=== PATIENT | female | born 1930 | race Caucasian/White ===

== ENCOUNTER 2016-05-08 13:07 | Inpatient (IN) ==
[2016-05-08 16:52] LABS: Basophils # 0.1 K/mcL (0.0-0.2); Basophils % 0.5 %; Eosinophils # 0.2 K/mcL (0.0-0.6); Eosinophils % 1.9 %; Hematocrit 33.4 % (35.3-44.9); Hemoglobin 11.1 g/dL (11.5-15.4); Immature Granulocytes % 0.6 % (0-4); Lymphocytes # 2.3 K/mcL (0.6-4.6); Mean Corpuscular HGB Conc 33.2 g/dL (31.6-35.5); Mean Corpuscular Hemoglobin 29.2 pg (28.0-33.3); Mean Corpuscular Volume 87.9 fL (83.0-100.0); Mean Platelet Volume 9.4 fL (9.4-12.4); Monocytes # 1.1 K/mcL (0.0-1.3); Monocytes % 11.4 %; Neutrophils # 5.8 K/mcL (1.6-8.9); Platelet Count 224 K/mcL (140-400); Red Cell Distribution Width 14.1 % (11.5-14.5); Segmented Neutrophils % 61.6 %
[2016-05-08 17:00] LABS: Albumin 3.1 g/dL (3.5-5.0); Albumin/Globulin Ratio 0.8 (1.1-2.2); Bilirubin,Total 0.7 mg/dL (0.2-1.2); Calcium 9.4 mg/dL (8.6-10.8); Globulin 4.1 g/dL (2.4-3.5); Potassium 3.3 mEq/L (3.5-4.5); Total Protein 7.2 g/dL (6.0-8.3)
[2016-05-08 19:14] LABS: Adenovirus F 40/41 PCR Not detected (Not detect); Astrovirus PCR Not detected (Not detect); C.difficile Toxin A/B by PCR See reflex test (Not detect); Campylobacter by PCR Not detected (Not detect); Cryptosporidium by PCR Not detected (Not detect); Cyclospora cayetanensis PCR Not detected (Not detect); E. coli O157 by PCR Not detected (Not detect); Entamoeba histolytica PCR Not detected (Not detect); Enteroaggregative E.coli(EAEC) Not detected (Not detect); Enteropathogenic E.coli(EPEC) Not detected (Not detect); Enterotoxigenic E.coli (ETEC) Not detected (Not detect); Giardia lamblia PCR Not detected (Not detect); Norovirus GI/GII PCR Not detected (Not detect); Plesiomonas shigelloides PCR Not detected (Not detect); Rotavirus A PCR Not detected (Not detect); Salmonella PCR Not detected (Not detect); Sapovirus PCR Not detected (Not detect); Shig/EnteroinvasiveE coli EIEC Not detected (Not detect); Shigalike tox-prod E coli STEC Not detected (Not detect); Vibrio PCR Not detected (Not detect); Vibrio cholerae PCR Not detected (Not detect); Yersinia enterocolitica PCR Not detected (Not detect)
--- NOTE | 2016-05-08 19:26 | Emergency Department Note ---
Disposition Clinical Impression: Clostridium difficile infection, Dehydration Diarrhea Qualifiers: Diarrhea type: infectious Qualified Code(s): A09 - Infectious gastroenteritis and colitis, unspecified Disposition: Admitted As Inpatient Condition: Good Referrals: Deysi Best [Primary Care Provider] - Forms: ED Satisfaction Letter Nausea/Vomiting/Diarrhea HPI - General Chief complaint: ED Nausea/Vomiting/Diarrhea Stated complaint: "dehydrated and the diarrhea is worse" Time Seen by Provider: 05/08/16 16:10 Source: patient Limitations: no limitations Nursing Notes Reviewed: Yes Vital Signs Reviewed: Yes - History of Present Illness HPI Narrative: 85-year-old female who presents to the ER with an almost 2 week history of diarrhea. She has not had any nausea or vomiting today is her third ER visit for diarrhea. Her daughter is very concerned because the patient does have dementia been trying to keep her hydrated with Pedialyte but she continues to have the profuse loose stools. She denies any recent hospitalizations or antibiotic use. Pt Subjective Complaint: diarrhea Onset (ago): week(s) (2) Description of emesis: feculent Number of episodes: 8 (today) Associated Abdominal Pain: No Consistency: constant Improves with: nothing Worsens with: eating Associated symptoms: Reports: weakness. Denies: fever/chills, nausea/vomiting - Related Data Home Medications Medication Instructions Recorded Confirmed Aspirin 81 mg PO HS 01/21/15 01/20/16 Levothyroxine [Synthroid] 75 mcg PO QAM 01/21/15 01/20/16 Furosemide [Lasix] 20 mg PO DAILY 10/08/15 01/20/16 Omeprazole [PriLOSEC] 20 mg PO HS 10/08/15 01/20/16 Ondansetron ODT [Zofran ODT] 4 mg SL Q8HR PRN 10/08/15 01/20/16 Sertraline [Zoloft] 100 mg PO HS 10/08/15 01/20/16 Diltiazem HCl [Diltiazem ER] 240 mg PO DAILY 01/20/16 01/20/16 Ferrous Sulfate [Iron] 325 mg PO QAM 01/20/16 01/20/16 Ferrous Sulfate [Iron] 650 mg PO HS 01/20/16 01/20/16 Metformin [Glucophage] 500 mg PO BIDWM 01/20/16 01/20/16 Allergies Allergy/AdvReac Type Severity Reaction Status Date / Time Beta-Blockers AdvReac Drowsy Verified 01/20/16 21:41 (Beta-Adrenergic Bloc Penicillins AdvReac Hives Verified 01/20/16 21:41 All systems ED: reviewed and negative except as stated. Constitutional: Reports: weakness. Denies: fever, chills Gastrointestinal: Denies: nausea, vomiting Past Medical History - Past Medical History Source: patient, old records reviewed, nursing notes reviewed Medical history: Reports: dementia, diabetes, hypertension, thyroid disease Surgical history: Reports: , cholecystectomy, hysterectomy Psychiatric history: Reports: depression [employer] history: Reports: no [employer] history - Social History Smoking Status: Never smoker Smokeless Tobacco Status: No Alcohol use: Reports: none Drug use: Reports: none Physical Exam - General Limitations: no limitations General appearance: alert - Head Head exam: atraumatic, normocephalic, normal inspection - Eye Eye exam: Present: normal appearance, PERRL, EOMI - Expanded Eye Exam Pupils: Left: reactive - ENT ENT exam: normal exam, normal oropharynx, mucous membranes moist - Expanded ENT Exam External ear exam: Present: normal external inspection Mouth exam: Present: normal external inspection Teeth exam: Present: normal inspection Throat exam: Present: normal inspection - Neck Neck exam: Present: normal inspection, full ROM, trachea midline - Chest Chest inspection: Present: normal inspection, symmetric chest wall rise - Respiratory Respiratory exam: Present: normal lung sounds bilaterally - Cardiovascular Cardiovascular exam: Present: regular rate, normal rhythm, normal heart sounds - Abdominal Exam Abdominal exam: Present: soft, Non-Tender, hyperactive bowel sounds. Absent: guarding, rebound - Extremities Exam Extremities exam: Present: normal inspection, full ROM. Absent: tenderness, pedal edema - Expanded Upper Extremity Exam Shoulder exam: Present: normal inspection, full ROM Arm exam: Present: normal inspection, full ROM Elbow exam: Present: normal inspection, full ROM Forearm/Wrist exam: Present: normal inspection, full ROM Hand exam: Present: normal inspection, full ROM Vascular exam: Normal: capillary refill, radial pulse - Expanded Lower Extremity Exam Hip/Pelvis exam: Present: normal inspection, full ROM Upper leg exam: Present: normal inspection, full ROM Knee exam: Present: normal inspection, full ROM Lower leg exam: Present: normal inspection, full ROM Ankle exam: Present: normal inspection, full ROM Foot/toe exam: Present: normal inspection, full ROM Neurovascular/Tendon exam: Absent: motor deficit, sensory deficit, tendon deficit - Back Exam Back exam: Present: normal inspection, full ROM. Absent: tenderness - Neurological Exam Neurological exam: Present: alert. Absent: oriented X3 (person and place only) - Expanded Neurological Exam Patient oriented to: Present: person, place, time Coma Scale Eye Opening: Spontaneous Coma Scale Motor Response: Obeys Commands Coma Scale Verbal Response: Oriented Coma Scale Total: 15 - Psychiatric Psychiatric exam: Present: normal affect, normal mood - Skin Skin exam: Present: warm, dry, intact, normal color Course Vital Signs Temperature 97.9 F 05/08/16 13:47 Pulse Rate 91 05/08/16 13:47 Respiratory Rate 14 05/08/16 13:47 Blood Pressure 108/57 05/08/16 13:47 O2 Sat by Pulse Oximetry 97 05/08/16 13:47 Temperature 97.9 F 05/08/16 13:47 Pulse Rate 72 05/08/16 15:17 Respiratory Rate 18 05/08/16 15:17 Blood Pressure 143/69 05/08/16 15:17 O2 Sat by Pulse Oximetry 96 05/08/16 15:17 Oxygen Delivery Oxygen Delivery Room Air Nausea/Vomiting/Diarrhea - Differential Diagnosis Likely: traveler's diarrhea, gastroenteritis, clostridium difficile infection, drug-induced nausea and vomitting, dehydration - Medical Records Medical records reviewed: Yes I reviewed the patient's medical records. - Lab Data Lab results reviewed: Yes I reviewed the patient's lab results. Result diagrams: 05/08/16 16:38 05/08/16 16:38 Lab Results 05/08/16 05/08/16 05/08/16 Range/Units 16:38 16:38 16:38 WBC 9.4 (4.3-11.1) K/mcL RBC 3.80 L (3.82-4.97) M/mcL Hgb 11.1 L (11.5-15.4) g/dL Hct 33.4 L (35.3-44.9) % MCV 87.9 (83.0-100.0) fL MCH 29.2 (28.0-33.3) pg MCHC 33.2 (31.6-35.5) g/dL RDW 14.1 (11.5-14.5) % Plt Count 224 (140-400) K/mcL MPV 9.4 (9.4-12.4) fL Immature Gran % 0.6 (0-4) % Seg Neutrophils % 61.6 % Lymphocytes % 24.0 % Monocytes % 11.4 % Eosinophils % 1.9 % Basophils % 0.5 % Neutrophils # 5.8 (1.6-8.9) K/mcL Lymphocytes # 2.3 (0.6-4.6) K/mcL Monocytes # 1.1 (0.0-1.3) K/mcL Eosinophils # 0.2 (0.0-0.6) K/mcL Basophils # 0.1 (0.0-0.2) K/mcL Sodium 141 (136-145) mEq/L Potassium 3.3 L (3.5-4.5) mEq/L Chloride 105 (98-109) mEq/L Carbon Dioxide 23 (19-29) mEq/L BUN 22 H (7-20) mg/dL Creatinine 1.37 H (0.57-1.11) mg/dL Est GFR ( Amer) 44 L (> 60) Est GFR (Non-Af Amer) 37 L (> 60) BUN/Creatinine Ratio 16 (6-26) Glucose 208 H (70-99) mg/dL Calculated Osmolality 301 H (280-300) Lactic Acid 1.2 (0.5-2.2) mmol/L Calcium 9.4 (8.6-10.8) mg/dL Total Bilirubin 0.7 (0.2-1.2) mg/dL AST 13 (5-34) Units/L ALT 11 (0-55) Units/L Alkaline Phosphatase 91 (38-126) Units/L Serum Total Protein 7.2 (6.0-8.3) g/dL Albumin 3.1 L (3.5-5.0) g/dL Globulin 4.1 H (2.4-3.5) g/dL Albumin/Globulin Ratio 0.8 L (1.1-2.2) Lipase 20 (8-78) Units/L Stl C. cayetanensis PCR (Not detect) Stool Rotavirus A PCR (Not detect) Stl Adenov F 40/41 PCR (Not detect) Stool Astrovirus (PCR) (Not detect) Stool Campylobacter PCR (Not detect) Stl C. diff Tox A/B PCR (Not detect) Stool Cryptosporidium PCR (Not detect) Stl Sh Tox Pr E STEC PCR (Not detect) Stool E coli O157 PCR (Not detect) Stl Enterotoxigenic E PCR (Not detect) Stool EPEC (PCR) (Not detect) Stool EAEC (PCR) (Not detect) Stl E. histolytica PCR (Not detect) Stool Giardia Lamblia PCR (Not detect) Stool Salmonella PCR (Not detect) Stool Sapovirus (PCR) (Not detect) Stl P. shigelloides PCR (Not detect) Stl Shigella/EIEC PCR (Not detect) St Y.enterocolitica PCR (Not detect) Stool Vibrio (PCR) (Not detect) Stl Vibrio cholerae PCR (Not detect) Stl Norovirus GI/GII PCR (Not detect) Stl GI Panel (PCR) [facility] 05/08/16 Range/Units 17:45 WBC (4.3-11.1) K/mcL RBC (3.82-4.97) M/mcL Hgb (11.5-15.4) g/dL Hct (35.3-44.9) % MCV (83.0-100.0) fL MCH (28.0-33.3) pg MCHC (31.6-35.5) g/dL RDW (11.5-14.5) % Plt Count (140-400) K/mcL MPV (9.4-12.4) fL Immature Gran % (0-4) % Seg Neutrophils % % Lymphocytes % % Monocytes % % Eosinophils % % Basophils % % Neutrophils # (1.6-8.9) K/mcL Lymphocytes # (0.6-4.6) K/mcL Monocytes # (0.0-1.3) K/mcL Eosinophils # (0.0-0.6) K/mcL Basophils # (0.0-0.2) K/mcL Sodium (136-145) mEq/L Potassium (3.5-4.5) mEq/L Chloride (98-109) mEq/L Carbon Dioxide (19-29) mEq/L BUN (7-20) mg/dL Creatinine (0.57-1.11) mg/dL Est GFR ( Amer) (> 60) Est GFR (Non-Af Amer) (> 60) BUN/Creatinine Ratio (6-26) Glucose (70-99) mg/dL Calculated Osmolality (280-300) Lactic Acid (0.5-2.2) mmol/L Calcium (8.6-10.8) mg/dL Total Bilirubin (0.2-1.2) mg/dL AST (5-34) Units/L ALT (0-55) Units/L Alkaline Phosphatase (38-126) Units/L Serum Total Protein (6.0-8.3) g/dL Albumin (3.5-5.0) g/dL Globulin (2.4-3.5) g/dL Albumin/Globulin Ratio (1.1-2.2) Lipase (8-78) Units/L Stl C. cayetanensis PCR Not detected (Not detect) Stool Rotavirus A PCR Not detected (Not detect) Stl Adenov F 40/41 PCR Not detected (Not detect) Stool Astrovirus (PCR) Not detected (Not detect) Stool Campylobacter PCR Not detected (Not detect) Stl C. diff Tox A/B PCR See reflex test A (Not detect) Stool Cryptosporidium PCR Not detected (Not detect) Stl Sh Tox Pr E STEC PCR Not detected (Not detect) Stool E coli O157 PCR Not detected (Not detect) Stl Enterotoxigenic E PCR Not detected (Not detect) Stool EPEC (PCR) Not detected (Not detect) Stool EAEC (PCR) Not detected (Not detect) Stl E. histolytica PCR Not detected (Not detect) Stool Giardia Lamblia PCR Not detected (Not detect) Stool Salmonella PCR Not detected (Not detect) Stool Sapovirus (PCR) Not detected (Not detect) Stl P. shigelloides PCR Not detected (Not detect) Stl Shigella/EIEC PCR Not detected (Not detect) St Y.enterocolitica PCR Not detected (Not detect) Stool Vibrio (PCR) Not detected (Not detect) Stl Vibrio cholerae PCR Not detected (Not detect) Stl Norovirus GI/GII PCR Not detected (Not detect) Stl GI Panel (PCR) Com See below - Radiology Data Radiology results reviewed: Yes I reviewed the patient's radiology results.
[2016-05-08] MEDS ORDERED: MetroNIDAZOLE 500 MG/100 ML 500 MG/100 ML BAG IVPB ONE (19:30)
[2016-05-08] MEDS ORDERED: 0.9 % Sodium Chloride 1,000 ML IVC ONE (19:33)
[2016-05-08] MEDS ORDERED: Ipratropium/Albuterol Neb 3 ML IH PRN (20:24)
[2016-05-08] MEDS ORDERED: Benzonatate 100 MG CAPSULE PO PRN (20:24)
[2016-05-08] MEDS ORDERED: Scopolamine Patch 1.5 MG PATCH.TD72 TD ONE (20:24)
[2016-05-08] MEDS ORDERED: Metoclopramide 10 MG/2 ML VIAL IVP PRN (20:24)
[2016-05-08] MEDS ORDERED: Dextrose Gel 15 GM PO PRN ×2 (20:28)
[2016-05-08] MEDS ORDERED: *HR* Dextrose 50 % in Water (Syg) 50 ML SYRINGE IVP PRN (20:28)
[2016-05-08] MEDS ORDERED: Acetaminophen 325 MG TABLET PO PRN (20:28)
[2016-05-08] MEDS ORDERED: *HR* Promethazine 25 MG/ML VIAL IVP PRN (20:28)
[2016-05-08] MEDS ORDERED: *HR* Morphine 2 MG/ML SYRINGE IVP PRN (20:28)
[2016-05-08] MEDS ORDERED: D5% in Water 1,000 ML IV PRN (20:28)
[2016-05-08] MEDS ORDERED: *HR* OxyCODONE Immed Rel 5 MG TABLET PO PRN (20:28)
[2016-05-08] MEDS ORDERED: Naloxone 0.4 MG/ML INJ IVP PRN (20:28)
--- NOTE | 2016-05-08 20:43 | Internal Med History&Physical ---
Date of Encounter: 05/08/16 Time of Encounter: 20:30 Assessment and Plan (1) Abdominal pain, vomiting, and diarrhea Current visit: Yes Status: Acute . (2) Infectious diarrheal disease Current visit: Yes Status: Acute . (3) Acute kidney injury superimposed on CKD Current visit: Yes Status: Acute . (4) Dementia arising in the senium and presenium Current visit: Yes Status: Chronic . (5) Type 2 diabetes mellitus Current visit: Yes Status: Chronic . Qualifiers: Diabetes mellitus complication status: with unspecified complications Diabetes mellitus medical terminologist insulin use: without medical terminologist use Qualified Code( s): E11.8 - Type 2 diabetes mellitus with unspecified complications (6) Hypokalemia due to loss of potassium Current visit: Yes Status: Acute . (7) Hypoalbuminemia due to protein-calorie malnutrition Current visit: Yes Status: Chronic . (8) Clostridium difficile infection Current visit: Yes Status: Acute . (9) Dehydration Current visit: Yes Status: Acute . (10) Hypothyroidism Current visit: Yes Status: Chronic . Qualifiers: Hypothyroidism type: unspecified Qualified Code(s): E03.9 - Hypothyroidism , unspecified (11) Proctitis Current visit: Yes Status: Acute . Internal Medicine - H&P: HPI Chief complaint: Diarrhea. Abdominal pain. Admitted From: Emergency Dept Plans for Post Hospital Care: Home History of present illness: Ms. Pagan is a 85 year old female with history significant for dementia unspecified, hypertension, depression and anxiety, type 2 diabetes mellitus, hypothyroidism, iron deficiency anemia, GERD, hypothyroidism, nonischemic cardiomyopathy, COPD-emphysema, nonsmoker. The patient was visited and interviewed and examined. The patient is admitted to the [facility] via the emergency department when she presents in the company of family with reports of persisting profuse diarrhea. The patient had been seen in the ER on 2 other occasions within the last week with report of a two-week history of diarrheal illness associated with abdominal pain nausea vomiting and watery diarrhea. Suspect medication has been feculent. Number of episodes of diarrhea per day between 5-10. Generalized weakness has been nonprogressive. Oral intake has diminished. Efforts to maintain hydration with prompting from family have been frustrating due to patient's dementia. There is no report of any specific ill contacts or recent travel or hospitalizations. The patient has not been recently prescribed any oral or parenteral antibiotic therapies. She has not been found to be fevers or chilling preventative diaphoresis. Watery foul-smelling diarrhea reported by family. The patient has been seen to be increasingly lethargic with diminishing ability to complete independent activities of daily living. He should not be prior to emergency room visits at [facility] the patient is also been seen earlier at [facility] on May 02 treated and released. She was found at that time to have evidence for acute kidney injury along with her dehydration. She had been seen by her primary care physician as well and her prescribed metformin therapy was discontinued due to her renal insufficiency and patient changed to Jordiance pending improvement in the renal function. She had not been initiated on any antibiotic therapies empirically for diarrheal illness. There is no report of prior diagnosis to facilitate infection or infectious enterocolitis. Findings in the ED: Temperature 97.9 pulse 70-91 respirations 14-18 BP 108-143/50-69 and O2 saturation 97% room air. WBC 9.4 hemoglobin 11.1 platelets 224,000. Differential normal. Metabolic panel normal except potassium 3.3 BUN 22 creatinine 1.37 GFR 37 glucose 208 osmolality 301 albumin 3.1 total protein 7.2. Lactic acid 1.2. Lipase 20. Gastrointestinal panel positive for C. difficile toxin a and B by PCR. CT of abdomen/pelvis without contrast demonstrated inflammatory changes involving the mid and distal rectum concerning for proctitis. Lower chest demonstrated mitral annular calcifications and to the family which demonstrated no mass lesion. Mild intra-hepatic and extrahepatic biliary dilatation. Status post cholecystectomy. Spleen and adrenal stomach pancreas without acute process. Slight atrophy of the kidneys. Right inferior pole calculus. Ureter is not dilated. Bladder unremarkable. Large and small bowel demonstrated no evidence of obstruction. Appendix not visualized. Status post hysterectomy. No adnexal mass. No free fluid or free air. No significant adenopathy. Normal vasculature. Mild atherosclerosis. No bony or soft tissue abnormalities demonstrated. Preliminary impression suggest acute infectious enterocolitis serologies consistent for C. difficile infection. This is associated with significant volume loss and acute kidney injury stage III. Moderate electrolye derangements coincide with this. At current presentation the patient does not meet SIRS or sepsis criteria. This may however been more evident earlier in her course. Given patient's advanced age, clinical findings, presenting chief concerns and comorbidities she is at risk for further acute clinical decline and morbidity in this setting. Workup and treatments will proceed comprehensively. Cumulative laboratory and radiographic data base was reviewed, considered and discussed. Pertinent ancillary medical records including ECW and PCI documentation, when available was reviewed and considered. Given the patient's presenting concerns, past medical history, clinical findings and symptoms, she is admitted at this time will undergo further evaluation and disposition. Orders were written as per the computerized physician order entry clerk system.......................................................................... .................... Consultative opinion and will be sought as clinical circumstances justify. Pain management needs will be addressed. Laboratory and radiographic data base will be updated as appropriate. Studies include: Cultures of blood and urine and stool, GI stool panel, stool /C. dificle toxin A/B, CPK, cardiac injury panel, BNP, metabolic and hematologic panel, magnesium, phosphorus, ionized calcium, thyroid panel, lipid profile, A1c , C-peptide, CRP, sedimentation rate, amylase, lipase, , blood gas, UA, lactic acid, serologies, etc. Precautions: Aspiration, fall, contact, delirium protocol/surveillance initiated. Telemetry with continuous hemodynamic monitoring and pulse oximetry initiated. Orthostatic vital signs Empiric antibody coverage: Intravenous Flagyl and PO Vancomycin susp pending final culture data. Bowel rest imposed. Clear liquid diet. Antiemetic, prokinetic, antispasmotic and probiotic therapies will be initiated. Antidiarrheal nocturnal dosing x3 days to offset severity of dysentery and dehydration pending efficacy of antibiotic therapies. Rehydration therapy to be emphasized. Special studies: CT abdomen/pelvis, chest x-ray, telemetry, EKG. Pulmonary toilet: Incentive spirometry. When necessary aerosol bronchodilator, mucolytic, antitussive, supplemental oxygen. Corticosteroid therapy when necessary. CPAP/BiPAP supplemental oxygen delivery when necessary. Aerosol Mucomyst therapy when necessary. Fluid and electrolyte repletion efforts will proceed. Careful attention to fluid balance and renal recovery will be emphasized. Avoidance of nephrotoxic exposure and adverse drug drug interaction in the setting of impaired renal function will be monitored closely. Correction of metabolic and acid-base deficits will be emphasized. Acute coronary syndrome protocol/surveillance initiated. DVT and PUD prophylaxis initiated: PPI therapy, intermittent pneumatic cuffs/ Teds. Subcutaneous heparin/Lovenox. Early ambulation will be encouraged. Immunization updates recommended. Influenza and pneumococcal vaccinations as part of ongoing preventative healthcare recommendations strongly recommended. Smoking cessation counseling briefly addressed. Patient is a nonsmoker. Advanced care directive discussion briefly addressed. Patient does not declare any healthcare restrictions at this time. Cardiovascular risk appraisal and cardiovascular risk reduction efforts will be emphasized. Physical and occupational therapy may be consulted to evaluate/assess patient's functional capacity and progress mobility if circumstances warrant. Sliding scale insulin coverage, (clear liquids to advance when clinical status permits) ADA dietary restraint and schedule an as-needed basis fingerstick glucose assessments were initiated. Oral hypoglycemic therapies will be withheld pending discharge planning Nutrition/diabetes education counseling may be considered if circumstances justify. Outpatient medication schedules will be reviewed, confirmed and facilitated as appropriate. Reconciliation of home treatments including adjustments, substitutions and reintroduction into the treatment regimen will address necessary maintenance therapies for chronic pre-existing medical conditions. Plan of care has been reviewed and discussed in detail with the patient's family. Questions addressed. Hospital course will be dependent upon clinical findings, treatment response and potential consultative interventions. Patient is at risk for further acute clinical decline and morbidity due to her advanced age, presenting chief complaints, clinical findings and comorbidities. Condition is serious. Prognosis is cautiously optimistic. CODE STATUS is full. Past Med Surg Social Fam HX - Past Medical History Source: old records reviewed Medical history: arthritis, cardiomyopathy (History of nonischemic cardiomyopathy.), COPD, dementia, diabetes, GERD, hypertension, osteoporosis, renal disease, thyroid disease, other (Iron deficiency anemia.) Psychiatric history: anxiety, depression, other - Past Surgical History Surgical History: appendectomy, (x3), cholecystectomy, hysterectomy, PAN/BSO, other - Social History Smoking Status: Never smoker Smokeless Tobacco Status: No Alcohol use: none Drug use: none Occupational status: retired Current living situation: With Family Activity Level: Independent ambulation, Mostly sedentary Recent Out of Country Travel Within the Last 8 Weeks: No Exposure or Possible Exposure to Illness During Travel: No - Family History Brother Living Status: Hx Family Cancer: Yes (esophagus) Mother Hx Family Respiratory Disorders: Yes (PE) Internal Medicine - H&P: Meds Aspirin 81 mg PO QPM 01/21/15 [History] Levothyroxine [Synthroid] 75 mcg PO QAM 01/21/15 [History] Furosemide [Lasix] 20 mg PO QAM 10/08/15 [History] Omeprazole [PriLOSEC] 20 mg PO QPM 10/08/15 [History] Ondansetron ODT [Zofran ODT] 4 mg SL Q8HR PRN 10/08/15 [History] Sertraline [Zoloft] 100 mg PO QPM 10/08/15 [History] Diltiazem HCl [Diltiazem ER] 240 mg PO QAM 01/20/16 [History] Ferrous Sulfate [Iron] 325 mg PO QAM 01/20/16 [History] Ferrous Sulfate [Iron] 650 mg PO QPM 01/20/16 [History] Empagliflozin [Jardiance] 10 mg PO QAM 05/08/16 [History] Allergies Penicillins Allergy (Verified 05/08/16 20:29) Hives Beta-Blockers (Beta-Adrenergic Bloc Adverse Reaction (Verified 01/20/16 21:41) Drowsy ROS unobtainable: due to mental status All Systems PM: A 10-system review of systems was performed and is negative for pertinent findings except as documented above in the HPI. - Constitutional Constitutional: as per HPI, anorexia, malaise, weakness, no chills, no fever(s) , no night sweats - EENT Eyes: as per HPI, no change in vision, no discharge, no pain, no photophobia Ears: as per HPI, no ear discharge, no ear pain, no tinnitus Nose, mouth and throat: as per HPI, no dysphagia, no nasal discharge, no neck pain, no sore throat - Cardiovascular Cardiovascular ROS IM: as per HPI, no chest pain, no diaphoresis, no dyspnea, no lightheadedness, no palpitations, no syncope - Respiratory Respiratory: as per HPI, no cough, no dyspnea, no wheezing, no excessive phlegm production - Gastrointestinal Gastrointestinal: as per HPI, abdominal pain, bloating, change in bowel habits, change in stool character, cramping, diarrhea, early satiety, fecal incontinence , loose stools, nausea, vomiting, other, no coffee ground emesis, no constipation, no heartburn, no hematemesis, no hematochezia, no melena, no odynophagia - Genitourinary Genitourinary: as per HPI, other, no change in urinary stream, no dysuria, no flank pain, no hematuria Menstruation: as per HPI, post hysterectomy - Musculoskeletal Musculoskeletal ROS IM: as per HPI, no numbness, no tingling - Integumentary Integumentary IM: as per HPI, no rash, no unusual bruising - Neurological Neurological ROS: as per HPI, no confusion, no convulsions, no focal weakness, no numbness, no tingling, no tremor(s) - Psychiatric Psychiatric: as per HPI, other - Endocrine Endocrine IM: as per HPI - Hematologic/Lymphatic Hematologic/Lymphatic: as per HPI, no easy bruising - Allergic/Immunologic Allergic/Immunologic: as per HPI - Constitutional Vitals: Temp Pulse Resp BP Pulse Ox 97.9 F 74 18 147/59 97 05/08/16 13:47 05/08/16 19:30 05/08/16 19:30 05/08/16 19:30 05/08/16 19:30 General appearance: Present: cooperative, A&O X 2, mild distress - Head Head exam: Present: atraumatic, normocephalic - Eye Eye exam: Present: EOMI, PERRL, conjuntiva pink, sclera anicteric Pupils: Present: normal accommodation, PERRL - ENT ENT exam: Present: mucous membranes dry, normal external ear exam, normal oropharynx - Neck Neck exam general surgery: Present: supple, trachea midline. Absent: lymphadenopathy - Respiratory Respiratory exam: Present: decreased breath sounds, CTAB. Absent: accessory muscle use, rales, rhonchi, wheezes - Cardiovascular Cardiovascular exam: Present: RRR, +S1, +S2. Absent: diastolic murmur, gallop, rubs, systolic murmur - GI/Abdominal GI/Abdominal exam: Present: distended, hyperactive bowel sounds, soft, no peritoneal signs. Absent: guarding, rebound, tenderness - Extremities Exam Extremities exam: Present: full ROM, warm, radial pulses palpable and symetrical. Absent: calf tenderness, cyanotic, pedal edema - Neurological Exam Neurological exam: Present: alert, altered, CN II-XII intact, no focal deficits. Absent: oriented X3, pronater drift, facial droop, speech deficit - Expanded Neurological Exam Neurological exam expanded: Present: protecting the airway. Absent: ataxia, expressive aphasia, receptive aphasia Patient oriented to: Present: person, place. Absent: time Coma Scale Eye Opening: Spontaneous Coma Scale Motor Response: Obeys Commands Coma Scale Verbal Response: Oriented Coma Scale Total: 15 - Psychiatric Psychiatric exam: Present: normal affect, normal mood - Skin Skin exam: Present: dry, intact, warm. Absent: petechiae, rash, urticaria, vesicles Internal Med - H&P Results - Labs CBC & Chem 7: 05/09/16 03:52 05/09/16 03:52 - Impressions Vital Signs Temp Pulse Resp BP Pulse Ox 05/08/16 19:30 74 18 147/59 97 05/08/16 18:00 73 18 147/49 97 05/08/16 17:00 70 16 146/57 97 05/08/16 16:00 72 16 146/49 96 05/08/16 15:17 72 18 143/69 96 05/08/16 13:47 97.9 F 91 14 108/57 97 Intake and Output 05/08/16 05/08/16 05/08/16 07:59 15:59 23:59 Other: Weight 55.792 kg Patient Weight 05/08/16 23:59 Weight 55.792 kg Short CBC 05/08/16 Range/Units 16:38 WBC 9.4 (4.3-11.1) K/mcL Hgb 11.1 L (11.5-15.4) g/dL Hct 33.4 L (35.3-44.9) % Plt Count 224 (140-400) K/mcL Neutrophils # 5.8 (1.6-8.9) K/mcL BMP 05/08/16 Range/Units 16:38 Sodium 141 (136-145) mEq/L Potassium 3.3 L (3.5-4.5) mEq/L Chloride 105 (98-109) mEq/L Carbon Dioxide 23 (19-29) mEq/L BUN 22 H (7-20) mg/dL Creatinine 1.37 H (0.57-1.11) mg/dL Glucose 208 H (70-99) mg/dL Calcium 9.4 (8.6-10.8) mg/dL Liver Function 05/08/16 Range/Units 16:38 Total Bilirubin 0.7 (0.2-1.2) mg/dL AST 13 (5-34) Units/L ALT 11 (0-55) Units/L Alkaline Phosphatase 91 (38-126) Units/L Albumin 3.1 L (3.5-5.0) g/dL Abnormal lab results RBC 3.80 M/mcL (3.82-4.97) L 05/08/16 16:38 Hgb 11.1 g/dL (11.5-15.4) L 05/08/16 16:38 Hct 33.4 % (35.3-44.9) L 05/08/16 16:38 Potassium 3.3 mEq/L (3.5-4.5) L 05/08/16 16:38 BUN 22 mg/dL (7-20) H 05/08/16 16:38 Creatinine 1.37 mg/dL (0.57-1.11) H 05/08/16 16:38 Est GFR ( Amer) 44 (> 60) L 05/08/16 16:38 Est GFR (Non-Af Amer) 37 (> 60) L 05/08/16 16:38 Glucose 208 mg/dL (70-99) H 05/08/16 16:38 Calculated Osmolality 301 (280-300) H 05/08/16 16:38 Albumin 3.1 g/dL (3.5-5.0) L 05/08/16 16:38 Globulin 4.1 g/dL (2.4-3.5) H 05/08/16 16:38 Albumin/Globulin Ratio 0.8 (1.1-2.2) L 05/08/16 16:38 Stl C. diff Tox A/B PCR See reflex test (Not detect) A 05/08/16 17:45 Allergies Allergy/AdvReac Type Severity Reaction Status Date / Time Penicillins Allergy Hives Verified 05/08/16 20:29 Beta-Blockers AdvReac Drowsy Verified 01/20/16 21:41 (Beta-Adrenergic Bloc Laboratory Results WBC 9.4 K/mcL (4.3-11.1) 05/08/16 16:38 RBC 3.80 M/mcL (3.82-4.97) L 05/08/16 16:38 Hgb 11.1 g/dL (11.5-15.4) L 05/08/16 16:38 Hct 33.4 % (35.3-44.9) L 05/08/16 16:38 MCV 87.9 fL (83.0-100.0) 05/08/16 16:38 MCH 29.2 pg (28.0-33.3) 05/08/16 16:38 MCHC 33.2 g/dL (31.6-35.5) 05/08/16 16:38 RDW 14.1 % (11.5-14.5) 05/08/16 16:38 Plt Count 224 K/mcL (140-400) 05/08/16 16:38 MPV 9.4 fL (9.4-12.4) 05/08/16 16:38 Immature Gran % 0.6 % (0-4) 05/08/16 16:38 Seg Neutrophils % 61.6 % 05/08/16 16:38 Lymphocytes % 24.0 % 05/08/16 16:38 Monocytes % 11.4 % 05/08/16 16:38 Eosinophils % 1.9 % 05/08/16 16:38 Basophils % 0.5 % 05/08/16 16:38 Neutrophils # 5.8 K/mcL (1.6-8.9) 05/08/16 16:38 Lymphocytes # 2.3 K/mcL (0.6-4.6) 05/08/16 16:38 Monocytes # 1.1 K/mcL (0.0-1.3) 05/08/16 16:38 Eosinophils # 0.2 K/mcL (0.0-0.6) 05/08/16 16:38 Basophils # 0.1 K/mcL (0.0-0.2) 05/08/16 16:38 Sodium 141 mEq/L (136-145) 05/08/16 16:38 Potassium 3.3 mEq/L (3.5-4.5) L 05/08/16 16:38 Chloride 105 mEq/L (98-109) 05/08/16 16:38 Carbon Dioxide 23 mEq/L (19-29) 05/08/16 16:38 BUN 22 mg/dL (7-20) H 05/08/16 16:38 Creatinine 1.37 mg/dL (0.57-1.11) H 05/08/16 16:38 Est GFR ( Amer) 44 (> 60) L 05/08/16 16:38 Est GFR (Non-Af Amer) 37 (> 60) L 05/08/16 16:38 BUN/Creatinine Ratio 16 (6-26) 05/08/16 16:38 Glucose 208 mg/dL (70-99) H 05/08/16 16:38 Calculated Osmolality 301 (280-300) H 05/08/16 16:38 Lactic Acid 1.2 mmol/L (0.5-2.2) 05/08/16 16:38 Calcium 9.4 mg/dL (8.6-10.8) 05/08/16 16:38 Magnesium 1.8 mg/dL (1.6-2.6) 05/08/16 16:38 Total Bilirubin 0.7 mg/dL (0.2-1.2) 05/08/16 16:38 AST 13 Units/L (5-34) 05/08/16 16:38 ALT 11 Units/L (0-55) 05/08/16 16:38 Alkaline Phosphatase 91 Units/L (38-126) 05/08/16 16:38 Serum Total Protein 7.2 g/dL (6.0-8.3) 05/08/16 16:38 Albumin 3.1 g/dL (3.5-5.0) L 05/08/16 16:38 Globulin 4.1 g/dL (2.4-3.5) H 05/08/16 16:38 Albumin/Globulin Ratio 0.8 (1.1-2.2) L 05/08/16 16:38 Lipase 20 Units/L (8-78) 05/08/16 16:38 Stl C. cayetanensis PCR Not detected (Not detect) 05/08/16 17:45 Stool Rotavirus A PCR Not detected (Not detect) 05/08/16 17:45 Stl Adenov F 40/41 PCR Not detected (Not detect) 05/08/16 17:45 Stool Astrovirus (PCR) Not detected (Not detect) 05/08/16 17:45 Stool Campylobacter PCR Not detected (Not detect) 05/08/16 17:45 Stl C. diff Tox A/B PCR See reflex test (Not detect) A 05/08/16 17:45 Stool Cryptosporidium PCR Not detected (Not detect) 05/08/16 17:45 Stl Sh Tox Pr E STEC PCR Not detected (Not detect) 05/08/16 17:45 Stool E coli O157 PCR Not detected (Not detect) 05/08/16 17:45 Stl Enterotoxigenic E PCR Not detected (Not detect) 05/08/16 17:45 Stool EPEC (PCR) Not detected (Not detect) 05/08/16 17:45 Stool EAEC (PCR) Not detected (Not detect) 05/08/16 17:45 Stl E. histolytica PCR Not detected (Not detect) 05/08/16 17:45 Stool Giardia Lamblia PCR Not detected (Not detect) 05/08/16 17:45 Stool Salmonella PCR Not detected (Not detect) 05/08/16 17:45 Stool Sapovirus (PCR) Not detected (Not detect) 05/08/16 17:45 Stl P. shigelloides PCR Not detected (Not detect) 05/08/16 17:45 Stl Shigella/EIEC PCR Not detected (Not detect) 05/08/16 17:45 St Y.enterocolitica PCR Not detected (Not detect) 05/08/16 17:45 Stool Vibrio (PCR) Not detected (Not detect) 05/08/16 17:45 Stl Vibrio cholerae PCR Not detected (Not detect) 05/08/16 17:45 Stl Norovirus GI/GII PCR Not detected (Not detect) 05/08/16 17:45 Stl GI Panel (PCR) Com See below 05/08/16 17:45 C. difficile Tox (PCR) Positive (Negative) 05/08/16 17:45 Impressions Abdomen/Pelvis CT 05/08/16 18:00 IMPRESSION: Inflammatory changes are present involving the mid and distal rectum, concerning for proctitis. Correlation with endoscopy is suggested once clinically appropriate to exclude an underlying mass lesion. D/ / 05/08/2016 18:57:54 Maximino Norton MD / basil Interpreting Provider: Maximino Norton MD
[2016-05-08 21:25] LABS: VBG HCO3 29.7 mEq/L (21-27); VBG PH 7.4 pH Units (7.32-7.42)
[2016-05-08 21:31] LABS: INR 1.2; Prothrombin Time 13.1 Seconds (9.4-12.1)
[2016-05-08 21:33] LABS: Activated Partial Thrombo Time 21.5 Seconds (26.0-36.0)
[2016-05-08 21:35] LABS: Hemoglobin A1C 6.8 %
[2016-05-08] MEDS ORDERED: Potassium Chloride Elixir 20 MEQ/15 ML UDC PO ONE (21:38)
[2016-05-08] MEDS ORDERED: Potassium Chloride 20 MEQ, Lidocaine 1% 2 ML in D5% in Water 250 ML IVPB ONE (21:38)
[2016-05-08 21:42] LABS: Magnesium 1.8 mg/dL (1.6-2.6); Phosphorous 2.8 mg/dL (2.3-4.7)
[2016-05-08 22:45] LABS: Thyroid Stimulating Hormone 1.646 mcIU/mL (0.350-4.840)
[2016-05-08] MEDS: Vancomycin Oral Soln 250 MG/2.5 ML UDC PO SCH (22:55)
[2016-05-08] MEDS: Aspirin 81 MG TAB.CHEW PO SCH (22:56)
[2016-05-08] MEDS: Diphenoxylate/Atropine 1 TAB TABLET PO SCH (22:56)
[2016-05-08] MEDS: 0.9 % Sodium Chloride 1,000 ML IVC SCH (23:10)
[2016-05-08] MEDS: Insulin LISPRO 300 UNITS/3 ML VIAL SQ SCH (23:14)
[2016-05-09] MEDS: MetroNIDAZOLE 500 MG/100 ML 500 MG/100 ML BAG IVPB SCH ×5 (01:05→23:45)
[2016-05-09 04:54] LABS: Hematocrit 29.7 % (35.3-44.9); Hemoglobin 9.6 g/dL (11.5-15.4); Mean Corpuscular HGB Conc 32.3 g/dL (31.6-35.5); Mean Corpuscular Hemoglobin 28.5 pg (28.0-33.3); Mean Corpuscular Volume 88.1 fL (83.0-100.0); Mean Platelet Volume 9.6 fL (9.4-12.4); Platelet Count 208 K/mcL (140-400); Red Blood Count 3.37 M/mcL (3.82-4.97); Red Cell Distribution Width 13.9 % (11.5-14.5)
[2016-05-09 05:09] LABS: Calcium 8.2 mg/dL (8.6-10.8); Chol/HDL Ratio 2.8 (0-4.9); Potassium 3.7 mEq/L (3.5-4.5)
[2016-05-09] MEDS: *HR* Heparin 5,000 UNIT/ML VIAL SQ SCH ×2 (05:54→18:12)
[2016-05-09] MEDS: Insulin LISPRO 300 UNITS/3 ML VIAL SQ SCH ×4 (08:34→21:30)
[2016-05-09] MEDS ORDERED: Pantoprazole 40 MG VIAL IVP SCH (09:00)
[2016-05-09] MEDS: Diltiazem CD (24hr) 240 MG CAPSULE PO SCH (10:14)
[2016-05-09] MEDS: Lactobacillus 1 EACH CAP.SPRINK PO SCH (10:14)
[2016-05-09] MEDS: Vancomycin Oral Soln 250 MG/2.5 ML UDC PO SCH ×4 (10:14→21:15)
--- NOTE | 2016-05-09 11:34 | Electrocardiograph Report ---
[facility] Test Date: 2016-05-08 Pat Name: GAVIN KHAN Department: 103 Room: 3A11 Gender: F [employer]er: MARTIN : 1930 Requested By: Maulik Culp Order Number: [id number] Reading MD: Tasha Diggs Measurements Intervals [place] Rate: 69 P: 43 OK: 188 QRS: -50 QRSD: 147 T: 111 QT: 416 QTc: 436 Interpretive Statements SINUS RHYTHM POSSIBLE LEFT ATRIAL ENLARGEMENT LEFT BUNDLE BRANCH BLOCK Electronically Signed On 05-09-16 11:32:45 EST by Tasha Diggs
[2016-05-09] MEDS: 0.9 % Sodium Chloride 1,000 ML IVC SCH (14:15)
--- NOTE | 2016-05-09 14:55 | Internal Med Progress Note ---
Date of Encounter: 05/09/16 Time of Encounter: 14:53 - Assessment and plan (1) Clostridium difficile infection Current Visit: Yes Status: Acute Assessment and plan: The patient has been admitted due to acute diarrhea associated with hypokalemia and acute kidney injury. The etiology of the diarrhea is C. difficile colitis. The patient is already on IV flagyl and po vancomycin. No leukocytosis. We will avoid nephrotoxic agents. We will continue monitoring potassium. We will obtain magnesium levels. Will advance diet to full liquid diet, will advance to soft diet tonight. We will obtain a consultation with the patient has therapy, physical therapy and social staff worker. Patient has underlying dementia, her power of trademark attorney is one of her daughters. I discussed the case in detail with the patient and her daughter during this encounter. They expressed understanding. (2) Acute kidney injury superimposed on CKD Current Visit: Yes Status: Acute (3) Hypokalemia Current Visit: Yes Status: Acute Assessment and plan: Resolved, will continue monitoring. (4) Dementia Current Visit: Yes Status: Acute Qualifiers: Dementia type: unspecified type Dementia behavioral disturbance: without behavioral disturbance Qualified Code(s): F03.90 - Unspecified dementia without behavioral disturbance - Time Spent With Patient 25 - 35 minutes - Subjective Interval history: This is my first encounter with the patient. The patient was seen and examined during rounds. The patient's daughter was present during this encounter. Patient still has watery diarrhea. She denies fever. She has underlying dementia. - Constitutional Vitals: Temp Pulse Resp BP Pulse Ox 98.2 F 81 14 131/55 95 05/09/16 13:23 05/09/16 13:23 05/09/16 13:23 05/09/16 13:23 05/09/16 13:23 General appearance: Present: cooperative, A&O X 2, pleasant, no acute distress - Head Head exam: Present: atraumatic, normocephalic - Eye Eye exam: Present: PERRL, conjuntiva pink, sclera anicteric Pupils: Present: PERRL - Neck Neck exam general surgery: Present: supple, trachea midline. Absent: lymphadenopathy - Respiratory Respiratory exam: Present: decreased breath sounds. Absent: accessory muscle use, rales, rhonchi, wheezes - Cardiovascular Cardiovascular exam: Present: RRR, +S1, +S2. Absent: diastolic murmur, gallop, rubs, systolic murmur - GI/Abdominal GI/Abdominal exam: Present: normal bowel sounds, soft, no peritoneal signs. Absent: distended, tenderness - Extremities Exam Extremities exam: Present: warm, radial pulses palpable and symetrical. Absent : calf tenderness, cyanotic, pedal edema - Neurological Exam Neurological exam: Present: CN II-XII intact, no focal deficits. Absent: pronater drift, facial droop, speech deficit - Skin Skin exam: Present: dry, intact Internal Medicine: Result - Labs CBC & Chem 7: 05/09/16 03:52 05/09/16 03:52 Labs: Short CBC 05/09/16 Range/Units 03:52 WBC 9.4 (4.3-11.1) K/mcL Hgb 9.6 L D (11.5-15.4) g/dL Hct 29.7 L (35.3-44.9) % Plt Count 208 (140-400) K/mcL BMP 05/09/16 03:52 Sodium 142 Potassium 3.7 Chloride 111 H Carbon Dioxide 22 BUN 19 Creatinine 1.08 Glucose 144 H Calcium 8.2 L Cardiac Enzymes 05/08/16 05/09/16 05/09/16 Range/Units 21:17 03:52 09:46 Troponin I 0.01 0.00 0.00 (0-0.03) ng/mL - ABG Interpretation ABG results: PT/INR, D-dimer PT 13.1 Seconds (9.4-12.1) H 05/08/16 21:17 Consult Discharge Plan - Plan Referrals: Deysi Best [Primary Care Provider] - 05/16/16 10:40 am
[2016-05-09] MEDS: Diphenoxylate/Atropine 1 TAB TABLET PO SCH (21:20)
[2016-05-09] MEDS: Aspirin 81 MG TAB.CHEW PO SCH (21:20)
[2016-05-10 05:55] LABS: Basophils % 0.5 %; Eosinophils # 0.2 K/mcL (0.0-0.6); Eosinophils % 2.3 %; Hematocrit 27.4 % (35.3-44.9); Immature Granulocytes % 0.5 % (0-4); Lymphocytes # 2.1 K/mcL (0.6-4.6); Lymphocytes % 26.3 %; Mean Corpuscular HGB Conc 32.8 g/dL (31.6-35.5); Mean Corpuscular Hemoglobin 28.5 pg (28.0-33.3); Mean Corpuscular Volume 86.7 fL (83.0-100.0); Mean Platelet Volume 9.3 fL (9.4-12.4); Monocytes % 12.1 %; Neutrophils # 4.6 K/mcL (1.6-8.9); Platelet Count 197 K/mcL (140-400); Red Blood Count 3.16 M/mcL (3.82-4.97); Red Cell Distribution Width 13.7 % (11.5-14.5); Segmented Neutrophils % 58.3 %
[2016-05-10 06:06] LABS: BUN/Creatinine Ratio 13 (6-26); Blood Urea Nitrogen 12 mg/dL (7-20); Carbon Dioxide 18 mEq/L (19-29); Chloride 110 mEq/L (98-109); Glucose 91 mg/dL (70-99); Magnesium 1.5 mg/dL (1.6-2.6); Osmolality,Calculated 287 (280-300); Sodium 139 mEq/L (136-145); eGFR For African Americans > 60 (> 60); eGFR For Non-African Americans > 60 (> 60)
[2016-05-10 06:10] LABS: Potassium 3.2 mEq/L (3.5-4.5)
[2016-05-10] MEDS: MetroNIDAZOLE 500 MG/100 ML 500 MG/100 ML BAG IVPB SCH ×3 (06:38→18:51)
[2016-05-10] MEDS: *HR* Heparin 5,000 UNIT/ML VIAL SQ SCH ×2 (06:39→21:33)
[2016-05-10] MEDS ORDERED: Magnesium Sulfate 2 GM in D5% in Water 100 ML IVPB ONE (08:29)
[2016-05-10] MEDS: Insulin LISPRO 300 UNITS/3 ML VIAL SQ SCH ×4 (08:43→21:33)
[2016-05-10] MEDS ORDERED: Famotidine 20 MG TABLET PO SCH (09:00)
[2016-05-10] MEDS: Diltiazem CD (24hr) 240 MG CAPSULE PO SCH (09:36)
[2016-05-10] MEDS: Lactobacillus 1 EACH CAP.SPRINK PO SCH (09:36)
[2016-05-10] MEDS: Vancomycin Oral Soln 250 MG/2.5 ML UDC PO SCH ×4 (09:36→21:33)
--- NOTE | 2016-05-10 16:16 | Internal Med Progress Note ---
Date of Encounter: 05/10/16 Time of Encounter: 16:13 - Assessment and plan (1) Clostridium difficile infection Current Visit: Yes Status: Acute Assessment and plan: The patient has been admitted due to acute diarrhea associated with hypokalemia and acute kidney injury. The etiology of the diarrhea is C. difficile colitis. The patient is already on IV flagyl and po vancomycin. No leukocytosis. We will avoid nephrotoxic agents. hypokalemia today, will supplement and We will continue monitoring potassium. CHELE improving. Not ready for discahrge yet, elderly patient with c diff coliti with renal involvement. We will supplement and continue monitoring magnesium levels. Patient has underlying dementia, her power of erisa attorney is one of her daughters. I discussed the case in detail with the patient and her daughter during this encounter. They expressed understanding. (2) Acute kidney injury superimposed on CKD Current Visit: Yes Status: Acute (3) Hypokalemia Current Visit: Yes Status: Acute (4) Dementia Current Visit: Yes Status: Acute Qualifiers: Dementia type: unspecified type Dementia behavioral disturbance: without behavioral disturbance Qualified Code(s): F03.90 - Unspecified dementia without behavioral disturbance - Subjective Interval history: The patient was seen and examined during rounds. The patient's daughter was present during this encounter. Patient still has watery diarrhea. She denies fever. She has underlying dementia. - Constitutional Vitals: Temp Pulse Resp BP Pulse Ox 97.5 F L 68 17 145/34 95 05/10/16 13:12 05/10/16 13:12 05/10/16 13:12 05/10/16 13:12 05/10/16 13:12 General appearance: Present: cooperative, A&O X 2, mild distress - Head Head exam: Present: atraumatic, normocephalic - Eye Eye exam: Present: PERRL, conjuntiva pink, sclera anicteric Pupils: Present: PERRL - Neck Neck exam general surgery: Present: supple, trachea midline. Absent: lymphadenopathy - Respiratory Respiratory exam: Present: CTAB. Absent: accessory muscle use, rales, rhonchi, wheezes - Cardiovascular Cardiovascular exam: Present: RRR, +S1, +S2. Absent: diastolic murmur, gallop, rubs, systolic murmur - GI/Abdominal GI/Abdominal exam: Present: normal bowel sounds, soft, no peritoneal signs. Absent: distended, tenderness - Extremities Exam Extremities exam: Present: warm, radial pulses palpable and symetrical. Absent : calf tenderness, cyanotic, pedal edema - Neurological Exam Neurological exam: Present: CN II-XII intact, oriented X3, no focal deficits. Absent: pronater drift, facial droop, speech deficit - Skin Skin exam: Present: dry, intact Internal Medicine: Result - Labs CBC & Chem 7: 05/10/16 05:40 05/10/16 05:40 Labs: Short CBC 05/10/16 Range/Units 05:40 WBC 7.9 (4.3-11.1) K/mcL Hgb 9.0 L (11.5-15.4) g/dL Hct 27.4 L (35.3-44.9) % Plt Count 197 (140-400) K/mcL Neutrophils # 4.6 (1.6-8.9) K/mcL BMP 05/10/16 05:40 Sodium 139 Potassium 3.2 L Chloride 110 H Carbon Dioxide 18 L BUN 12 Creatinine 0.89 Glucose 91 Calcium 8.0 L - ABG Interpretation ABG results: PT/INR, D-dimer PT 13.1 Seconds (9.4-12.1) H 05/08/16 21:17 - VTE Documentation of Mechanical Device: Intermittent pneumatic compression device Consult Discharge Plan - Plan Referrals: Deysi Best [Primary Care Provider] - 05/16/16 10:40 am
[2016-05-10] MEDS: Diphenoxylate/Atropine 1 TAB TABLET PO SCH (21:32)
[2016-05-10] MEDS: Aspirin 81 MG TAB.CHEW PO SCH (21:32)
[2016-05-11] MEDS: MetroNIDAZOLE 500 MG/100 ML 500 MG/100 ML BAG IVPB SCH ×4 (00:01→17:23)
[2016-05-11 04:36] LABS: Basophils # 0.1 K/mcL (0.0-0.2); Basophils % 0.7 %; Eosinophils # 0.3 K/mcL (0.0-0.6); Eosinophils % 4.6 %; Hematocrit 27.6 % (35.3-44.9); Hemoglobin 9.1 g/dL (11.5-15.4); Lymphocytes # 1.6 K/mcL (0.6-4.6); Lymphocytes % 22.8 %; Mean Corpuscular Hemoglobin 28.7 pg (28.0-33.3); Mean Corpuscular Volume 87.1 fL (83.0-100.0); Mean Platelet Volume 9.2 fL (9.4-12.4); Monocytes % 13.8 %; Neutrophils # 4.1 K/mcL (1.6-8.9); Platelet Count 199 K/mcL (140-400); Red Blood Count 3.17 M/mcL (3.82-4.97); Red Cell Distribution Width 13.8 % (11.5-14.5); Segmented Neutrophils % 57.1 %
[2016-05-11 04:52] LABS: BUN/Creatinine Ratio 10 (6-26); Blood Urea Nitrogen 9 mg/dL (7-20); Calcium 8.1 mg/dL (8.6-10.8); Carbon Dioxide 18 mEq/L (19-29); Chloride 112 mEq/L (98-109); Glucose 105 mg/dL (70-99); Magnesium 1.6 mg/dL (1.6-2.6); Osmolality,Calculated 285 (280-300); Potassium 4.2 mEq/L (3.5-4.5); Sodium 138 mEq/L (136-145); eGFR For African Americans > 60 (> 60); eGFR For Non-African Americans > 60 (> 60)
[2016-05-11 05:22] LABS: Bilirubin,Urine Negative (Negative); Blood,Urine Trace-lysed (Negative); Clarity,Urine Slightly Cloudy (Clear); Color,Urine Yellow (Yellow); Glucose,Urine (UA) 500 mg/dL (Normal); Ketones,Urine Trace mg/dL (Negative); Leukocyte Esterase,Urine Small (Negative); Nitrite,Urine Negative (Negative); Protein,Urine Negative (Neg-Trace); Urobilinogen,Urine Normal (Normal)
[2016-05-11 05:25] LABS: Squamous Epithelial Cell,Urine Many per lpf (None-Few)
[2016-05-11] MEDS: *HR* Heparin 5,000 UNIT/ML VIAL SQ SCH ×2 (05:32→17:20)
[2016-05-11 05:34] LABS: Amorphous Sediment,Urine Few (Few); Bacteria,Urine Few per hpf (None-Few); Hyaline Casts,Urine Few per lpf (None-Few)
[2016-05-11] MEDS ORDERED: Magnesium Sulfate 2 GM in D5% in Water 100 ML IVPB ONE (07:56)
[2016-05-11] MEDS: Diltiazem CD (24hr) 240 MG CAPSULE PO SCH (08:00)
[2016-05-11] MEDS: Lactobacillus 1 EACH CAP.SPRINK PO SCH (08:00)
[2016-05-11] MEDS: Famotidine 20 MG TABLET PO SCH (08:01)
[2016-05-11] MEDS: Vancomycin Oral Soln 250 MG/2.5 ML UDC PO SCH ×4 (08:02→20:34)
[2016-05-11] MEDS: Insulin LISPRO 300 UNITS/3 ML VIAL SQ SCH ×4 (08:02→20:33)
--- NOTE | 2016-05-11 14:12 | Internal Med Progress Note ---
Date of Encounter: 05/11/16 Time of Encounter: 14:09 - Assessment and plan (1) Clostridium difficile infection Current Visit: Yes Status: Acute Assessment and plan: The patient has been admitted due to acute diarrhea associated with hypokalemia and acute kidney injury. The etiology of the diarrhea is C. difficile colitis. The patient is already on IV flagyl and po vancomycin. No leukocytosis. We will avoid nephrotoxic agents. hypokalemia resolved, will continue monitoring potassium. CHELE improving. Not ready for discahrge yet, elderly patient with c diff coliti with renal involvement, possible discharge tomorow in am. We will supplement and continue monitoring magnesium levels. Patient has underlying dementia, her power of workers compensation defense attorney is one of her daughters. I discussed the case in detail with the patient and her daughter during this encounter. They expressed understanding. (2) Acute kidney injury superimposed on CKD Current Visit: Yes Status: Acute (3) Hypokalemia Current Visit: Yes Status: Acute (4) Dementia Current Visit: Yes Status: Acute Qualifiers: Dementia type: unspecified type Dementia behavioral disturbance: without behavioral disturbance Qualified Code(s): F03.90 - Unspecified dementia without behavioral disturbance - Subjective Interval history: The patient was seen and examined during rounds. The patient's daughter was present during this encounter. Patient still has watery diarrhea however is getting better, is tolerating diet. She denies fever. She has underlying dementia. - Constitutional Vitals: Temp Pulse Resp BP Pulse Ox 98.0 F 74 17 109/68 98 05/11/16 11:49 05/11/16 11:49 05/11/16 11:49 05/11/16 11:49 05/11/16 11:49 General appearance: Present: cooperative, A&O X 2, mild distress - Head Head exam: Present: atraumatic, normocephalic - Eye Eye exam: Present: PERRL, conjuntiva pink, sclera anicteric Pupils: Present: PERRL - Neck Neck exam general surgery: Present: supple, trachea midline. Absent: lymphadenopathy - Respiratory Respiratory exam: Present: CTAB. Absent: accessory muscle use, rales, rhonchi, wheezes - Cardiovascular Cardiovascular exam: Present: RRR, +S1, +S2. Absent: diastolic murmur, gallop, rubs, systolic murmur - GI/Abdominal GI/Abdominal exam: Present: normal bowel sounds, soft, no peritoneal signs. Absent: distended, tenderness - Extremities Exam Extremities exam: Present: warm, radial pulses palpable and symetrical. Absent : calf tenderness, cyanotic, pedal edema - Neurological Exam Neurological exam: Present: CN II-XII intact, oriented X3, no focal deficits. Absent: pronater drift, facial droop, speech deficit - Skin Skin exam: Present: dry, intact Internal Medicine: Result - Labs CBC & Chem 7: 05/11/16 04:13 05/11/16 04:13 Labs: Short CBC 05/11/16 Range/Units 04:13 WBC 7.2 (4.3-11.1) K/mcL Hgb 9.1 L (11.5-15.4) g/dL Hct 27.6 L (35.3-44.9) % Plt Count 199 (140-400) K/mcL Neutrophils # 4.1 (1.6-8.9) K/mcL BMP 05/11/16 04:13 Sodium 138 Potassium 4.2 D Chloride 112 H Carbon Dioxide 18 L BUN 9 Creatinine 0.89 Glucose 105 H Calcium 8.1 L Urine 05/11/16 Range/Units 05:00 Urine Color Yellow (Yellow) Urine Clarity Slightly Cloudy A (Clear) Urine pH 6.0 (5.0-8.0) pH Units Ur Specific Lee 1.020 (1.010-1.025) Urine Protein Negative (Neg-Trace) mg/dL Urine Glucose (UA) 500 H (Normal) mg/dL - ABG Interpretation ABG results: PT/INR, D-dimer PT 13.1 Seconds (9.4-12.1) H 05/08/16 21:17 - VTE Documentation of Mechanical Device: Intermittent pneumatic compression device Consult Discharge Plan - Plan Referrals: Deysi Best [Primary Care Provider] - 05/16/16 10:40 am
[2016-05-11] MEDS: Aspirin 81 MG TAB.CHEW PO SCH (20:33)
[2016-05-11] MEDS: Diphenoxylate/Atropine 1 TAB TABLET PO SCH (20:33)
[2016-05-12] MEDS: MetroNIDAZOLE 500 MG/100 ML 500 MG/100 ML BAG IVPB SCH ×2 (00:15→06:40)
[2016-05-12 05:19] LABS: Basophils # 0.1 K/mcL (0.0-0.2); Basophils % 0.9 %; Eosinophils # 0.3 K/mcL (0.0-0.6); Eosinophils % 3.3 %; Hematocrit 33.7 % (35.3-44.9); Immature Granulocytes % 1.9 % (0-4); Lymphocytes % 26.2 %; Mean Corpuscular HGB Conc 32.6 g/dL (31.6-35.5); Mean Corpuscular Hemoglobin 28.6 pg (28.0-33.3); Mean Corpuscular Volume 87.5 fL (83.0-100.0); Mean Platelet Volume 8.9 fL (9.4-12.4); Monocytes % 12.9 %; Neutrophils # 4.1 K/mcL (1.6-8.9); Platelet Count 244 K/mcL (140-400); Red Blood Count 3.85 M/mcL (3.82-4.97); Red Cell Distribution Width 14.5 % (11.5-14.5); Segmented Neutrophils % 54.8 %
[2016-05-12 05:31] LABS: BUN/Creatinine Ratio 7 (6-26); Blood Urea Nitrogen 7 mg/dL (7-20); Calcium 8.7 mg/dL (8.6-10.8); Carbon Dioxide 16 mEq/L (19-29); Chloride 112 mEq/L (98-109); Glucose 102 mg/dL (70-99); Magnesium 2.1 mg/dL (1.6-2.6); Osmolality,Calculated 288 (280-300); Potassium 4.1 mEq/L (3.5-4.5); Sodium 140 mEq/L (136-145); eGFR For African Americans > 60 (> 60); eGFR For Non-African Americans 55 (> 60)
[2016-05-12] MEDS: *HR* Heparin 5,000 UNIT/ML VIAL SQ SCH (06:40)
[2016-05-12] MEDS: Lactobacillus 1 EACH CAP.SPRINK PO SCH (07:53)
[2016-05-12] MEDS: Vancomycin Oral Soln 250 MG/2.5 ML UDC PO SCH (07:53)
[2016-05-12] MEDS: Famotidine 20 MG TABLET PO SCH (07:54)
[2016-05-12] MEDS: Diltiazem CD (24hr) 240 MG CAPSULE PO SCH (07:54)
[2016-05-12] MEDS: Insulin LISPRO 300 UNITS/3 ML VIAL SQ SCH (07:55)
[2016-05-12 08:11] VITALS: BP 145/63
--- NOTE | 2016-05-12 09:19 | Discharge Summary ---
Date of Encounter: 05/12/16 Time of Encounter: 09:17 - Discharge Diagnosis (1) Clostridium difficile infection Priority: Primary Status: Acute (2) Acute kidney injury superimposed on CKD Priority: Secondary Status: Acute (3) Hypokalemia Priority: Secondary Status: Acute (4) Dementia Priority: Secondary Status: Acute Qualifiers: Dementia type: unspecified type Dementia behavioral disturbance: without behavioral disturbance Qualified Code(s): F03.90 - Unspecified dementia without behavioral disturbance - Discharge Medications Prescriptions: MetroNIDAZOLE [Flagyl] 500 mg PO TID 10 Days Vancomycin Oral Soln [Vancocin] 250 mg PO QID 10 Days Home Medications: Aspirin 81 mg PO QPM 01/21/15 [History] Levothyroxine [Synthroid] 75 mcg PO QAM 01/21/15 [History] Furosemide [Lasix] 20 mg PO QAM 10/08/15 [History] Ondansetron ODT [Zofran ODT] 4 mg SL Q8HR PRN 10/08/15 [History] Sertraline [Zoloft] 100 mg PO QPM 10/08/15 [History] Diltiazem HCl [Diltiazem ER] 240 mg PO QAM 01/20/16 [History] Ferrous Sulfate [Iron] 325 mg PO QAM 01/20/16 [History] Ferrous Sulfate [Iron] 650 mg PO QPM 01/20/16 [History] Empagliflozin [Jardiance] 10 mg PO QAM 05/08/16 [History] MetroNIDAZOLE [Flagyl] 500 mg PO TID 10 Days 05/12/16 [Rx] Vancomycin Oral Soln [Vancocin] 250 mg PO QID 10 Days 05/12/16 [Rx] Allergies/Adverse Reactions: Allergies Penicillins Allergy (Verified 05/08/16 20:29) Hives Beta-Blockers (Beta-Adrenergic Bloc Adverse Reaction (Verified 01/20/16 21:41) Drowsy promethazine [From Phenergan] Adverse Reaction (Verified 05/12/16 08:18) Confusion Date of admission: 05/08/16 19:58 Primary care physician: Deysi Best Consults: 05/09/16 08:21 Consult to Occupational Therapy [CONS] Routine Comment: Evaluate, develop and implement POC Consult to Physical Therapy [CONS] Routine Comment: Evaluate, develop and implement POC Consult to Manager In Home [CONS] Routine Reason for SW Consult: services upon discharge Discharging clinician: Hussein Harris Anticipated date of discharge: 05/12/16 - Patient Status Disposition: Home Health Service Condition: Good Functional capacity at discharge: uses cane/walker Overall status at discharge: patient is back to baseline - Discharge Instructions Follow Up With: Deysi Best [Primary Care Provider] - 05/16/16 10:40 am - Diet and Activity Activity: as per physical therapy, increase activity as tolerated Diet: advance to your usual diet Interval History: Ms. Pagan is a 85 year old female with history significant for dementia unspecified, hypertension, depression and anxiety, type 2 diabetes mellitus, hypothyroidism, iron deficiency anemia, GERD, hypothyroidism, nonischemic cardiomyopathy, COPD-emphysema, nonsmoker. The patient was visited and interviewed and examined. The patient is admitted to the [facility] via the emergency department when she presents in the company of family with reports of persisting profuse diarrhea. The patient had been seen in the ER on 2 other occasions within the last week with report of a two-week history of diarrheal illness associated with abdominal pain nausea vomiting and watery diarrhea. Suspect medication has been feculent. Number of episodes of diarrhea per day between 5-10. Generalized weakness has been nonprogressive. Oral intake has diminished. Efforts to maintain hydration with prompting from family have been frustrating due to patient's dementia. There is no report of any specific ill contacts or recent travel or hospitalizations. The patient has not been recently prescribed any oral or parenteral antibiotic therapies. She has not been found to be fevers or chilling preventative diaphoresis. Watery foul-smelling diarrhea reported by family. The patient has been seen to be increasingly lethargic with diminishing ability to complete independent activities of daily living. He should not be prior to emergency room visits at [facility] the patient is also been seen earlier at [facility] on May 02 treated and released. She was found at that time to have evidence for acute kidney injury along with her dehydration. She had been seen by her primary care physician as well and her prescribed metformin therapy was discontinued due to her renal insufficiency and patient changed to Jordiance pending improvement in the renal function. She had not been initiated on any antibiotic therapies empirically for diarrheal illness. There is no report of prior diagnosis to facilitate infection or infectious enterocolitis. Findings in the ED: Temperature 97.9 pulse 70-91 respirations 14-18 BP 108-143/50-69 and O2 saturation 97% room air. WBC 9.4 hemoglobin 11.1 platelets 224,000. Differential normal. Metabolic panel normal except potassium 3.3 BUN 22 creatinine 1.37 GFR 37 glucose 208 osmolality 301 albumin 3.1 total protein 7.2. Lactic acid 1.2. Lipase 20. Gastrointestinal panel positive for C. difficile toxin a and B by PCR. CT of abdomen/pelvis without contrast demonstrated inflammatory changes involving the mid and distal rectum concerning for proctitis. Lower chest demonstrated mitral annular calcifications and to the family which demonstrated no mass lesion. Mild intra-hepatic and extrahepatic biliary dilatation. Status post cholecystectomy. Spleen and adrenal stomach pancreas without acute process. Slight atrophy of the kidneys. Right inferior pole calculus. Ureter is not dilated. Bladder unremarkable. Large and small bowel demonstrated no evidence of obstruction. Appendix not visualized. Status post hysterectomy. No adnexal mass. No free fluid or free air. No significant adenopathy. Normal vasculature. Mild atherosclerosis. No bony or soft tissue abnormalities demonstrated. Preliminary impression suggest acute infectious enterocolitis serologies consistent for C. difficile infection. This is associated with significant volume loss and acute kidney injury stage III. Moderate electrolye derangements coincide with this. At current presentation the patient does not meet SIRS or sepsis criteria. This may however been more evident earlier in her course. Given patient's advanced age, clinical findings, presenting chief concerns and comorbidities she is at risk for further acute clinical decline and morbidity in this setting. Workup and treatments will proceed comprehensively. Cumulative laboratory and radiographic data base was reviewed, considered and discussed. Pertinent ancillary medical records including ECW and PCI documentation, when available was reviewed and considered. Given the patient's presenting concerns, past medical history, clinical findings and symptoms, she is admitted at this time will undergo further evaluation and disposition. Orders were written as per the computerized physician recorder of deeds system.......................................................................... .................... Consultative opinion and will be sought as clinical circumstances justify. Pain management needs will be addressed. Laboratory and radiographic data base will be updated as appropriate. Studies include: Cultures of blood and urine and stool, GI stool panel, stool /C. dificle toxin A/B, CPK, cardiac injury panel, BNP, metabolic and hematologic panel, magnesium, phosphorus, ionized calcium, thyroid panel, lipid profile, A1c , C-peptide, CRP, sedimentation rate, amylase, lipase, , blood gas, UA, lactic acid, serologies, etc. Precautions: Aspiration, fall, contact, delirium protocol/surveillance initiated. Telemetry with continuous hemodynamic monitoring and pulse oximetry initiated. Orthostatic vital signs Empiric antibody coverage: Intravenous Flagyl and PO Vancomycin susp pending final culture data. Bowel rest imposed. Clear liquid diet. Antiemetic, prokinetic, antispasmotic and probiotic therapies will be initiated. Antidiarrheal nocturnal dosing x3 days to offset severity of dysentery and dehydration pending efficacy of antibiotic therapies. Rehydration therapy to be emphasized. Special studies: CT abdomen/pelvis, chest x-ray, telemetry, EKG. Pulmonary toilet: Incentive spirometry. When necessary aerosol bronchodilator, mucolytic, antitussive, supplemental oxygen. Corticosteroid therapy when necessary. CPAP/BiPAP supplemental oxygen delivery when necessary. Aerosol Mucomyst therapy when necessary. Fluid and electrolyte repletion efforts will proceed. Careful attention to fluid balance and renal recovery will be emphasized. Avoidance of nephrotoxic exposure and adverse drug drug interaction in the setting of impaired renal function will be monitored closely. Correction of metabolic and acid-base deficits will be emphasized. Acute coronary syndrome protocol/surveillance initiated. DVT and PUD prophylaxis initiated: PPI therapy, intermittent pneumatic cuffs/ Teds. Subcutaneous heparin/Lovenox. Early ambulation will be encouraged. Immunization updates recommended. Influenza and pneumococcal vaccinations as part of ongoing preventative healthcare recommendations strongly recommended. Smoking cessation counseling briefly addressed. Patient is a nonsmoker. Advanced care directive discussion briefly addressed. Patient does not declare any healthcare restrictions at this time. Cardiovascular risk appraisal and cardiovascular risk reduction efforts will be emphasized. Physical and occupational therapy may be consulted to evaluate/assess patient's functional capacity and progress mobility if circumstances warrant. Sliding scale insulin coverage, (clear liquids to advance when clinical status permits) ADA dietary restraint and schedule an as-needed basis fingerstick glucose assessments were initiated. Oral hypoglycemic therapies will be withheld pending discharge planning Nutrition/diabetes education counseling may be considered if circumstances justify. Outpatient medication schedules will be reviewed, confirmed and facilitated as appropriate. Reconciliation of home treatments including adjustments, substitutions and reintroduction into the treatment regimen will address necessary maintenance therapies for chronic pre-existing medical conditions. Plan of care has been reviewed and discussed in detail with the patient's family. Questions addressed. Hospital course will be dependent upon clinical findings, treatment response and potential consultative interventions. Patient is at risk for further acute clinical decline and morbidity due to her advanced age, presenting chief complaints, clinical findings and comorbidities. Condition is serious. Prognosis is cautiously optimistic. CODE STATUS is full. Hospital course: Ms. Pagan is a 85 year old female The patient has been admitted due to acute diarrhea associated with hypokalemia and acute kidney injury. The etiology of the diarrhea is C. difficile colitis. The patient was on IV flagyl and po vancomycin. No leukocytosis. hypokalemia resolved. CHELE improved, renal function back to baseline. Patient afebrile since admission, no leukocytosis, diarrhea improving. Will discharge her home with po vancmycin and po flagyl to complete 2 weeks of treatment. Follow up with pcp. Patient has underlying dementia, her power of managing attorney is one of her daughters. I discussed the case in detail with the patient and her daughter during this encounter. They expressed understanding. - Time Spent with Patient Total time spent providing and/or coordinating discharge services: Greater than 30 minutes - Constitutional Vitals: Temp Pulse Resp BP Pulse Ox 98.1 F 82 18 145/63 98 05/12/16 07:35 05/12/16 07:35 05/12/16 07:35 05/12/16 07:35 05/12/16 07:35 General appearance: Present: cooperative, A&O X 2, mild distress - Head Head exam: Present: atraumatic, normocephalic - Eye Eye exam: Present: PERRL, conjuntiva pink, sclera anicteric Pupils: Present: PERRL - Neck Neck exam general surgery: Present: supple, trachea midline. Absent: lymphadenopathy - Respiratory Respiratory exam: Present: CTAB. Absent: accessory muscle use, rales, rhonchi, wheezes - Cardiovascular Cardiovascular exam: Present: RRR, +S1, +S2. Absent: diastolic murmur, gallop, rubs, systolic murmur - GI/Abdominal GI/Abdominal exam: Present: normal bowel sounds, soft, no peritoneal signs. Absent: distended, tenderness - Extremities Exam Extremities exam: Present: warm, radial pulses palpable and symetrical. Absent : calf tenderness, cyanotic, pedal edema - Neurological Exam Neurological exam: Present: CN II-XII intact, oriented X3, no focal deficits. Absent: pronater drift, facial droop, speech deficit - Skin Skin exam: Present: dry, intact - VTE Documentation of Mechanical Device: Intermittent pneumatic compression device
--- NOTE | 2016-05-12 09:31 | Physician Discharge Referral ---
Home Health/Hosp Referral Info Transfer to: Home Health Provider in Charge Post Discharge: PCP - Diagnosis (1) Clostridium difficile infection Priority: Primary Status: Acute (2) Acute kidney injury superimposed on CKD Priority: Secondary Status: Acute (3) Hypokalemia Priority: Secondary Status: Acute (4) Dementia Priority: Secondary Status: Acute - Respiratory Orders Smoking Cessation: Smoking cessation has been advised. For more information, call the [employer] Tobacco Quit Line at 1-849-OAQA-NOW. - Diet/Nutrition Diet/Nutrition Orders: Regular - Activity Activity Orders: Up ad corrina - Services Needed Following services are medically necessary services: Home Health Aide - Transfer Medications Prescriptions: MetroNIDAZOLE [Flagyl] 500 mg PO TID 10 Days Vancomycin Oral Soln [Vancocin] 250 mg PO QID 10 Days Home Medications: Aspirin 81 mg PO QPM 01/21/15 [History] Levothyroxine [Synthroid] 75 mcg PO QAM 01/21/15 [History] Furosemide [Lasix] 20 mg PO QAM 10/08/15 [History] Ondansetron ODT [Zofran ODT] 4 mg SL Q8HR PRN 10/08/15 [History] Sertraline [Zoloft] 100 mg PO QPM 10/08/15 [History] Diltiazem HCl [Diltiazem ER] 240 mg PO QAM 01/20/16 [History] Ferrous Sulfate [Iron] 325 mg PO QAM 01/20/16 [History] Ferrous Sulfate [Iron] 650 mg PO QPM 01/20/16 [History] Empagliflozin [Jardiance] 10 mg PO QAM 05/08/16 [History] MetroNIDAZOLE [Flagyl] 500 mg PO TID 10 Days 05/12/16 [Rx] Vancomycin Oral Soln [Vancocin] 250 mg PO QID 10 Days 05/12/16 [Rx] Allergies/Adverse Reactions: Allergies Penicillins Allergy (Verified 05/08/16 20:29) Hives Beta-Blockers (Beta-Adrenergic Bloc Adverse Reaction (Verified 01/20/16 21:41) Drowsy promethazine [From Phenergan] Adverse Reaction (Verified 05/12/16 08:18) Confusion Certification: Further, I certify that my clinical findings support that this patient is homebound (i.e. absences from home require considerable and taxing effort and are for medical reasons or taoist services or infrequently or short duration when for other reasons) because: Homebound Reason: Leaving home requires considerable and taxing effort due to condition, Altered mental status requiring supervision when leaving home Attestation: My signature below is to certify that this patient is under my care and that I, or nurse practitioner, or a physician's players assistant working with me, has a face-to -face encounter with this patient.
== END 2016-05-12 13:10 | disposition home or self-care (01) | DRG 372 ==
LOC: EMEROO 13:07 → 3ANU 19:58 → SUATTDRO 19:58 → 3ANU 22:00
PROVIDERS: ADMIT Hospitalist; ATTEND Internal Medicine

== ENCOUNTER 2017-01-23 12:19 | Inpatient (IN) ==
--- NOTE | 2017-01-23 12:40 | Emergency Department Note ---
Disposition Clinical Impression: Nausea Diarrhea Qualifiers: Diarrhea type: unspecified type Qualified Code(s): R19.7 - Diarrhea, unspecified Disposition: Admitted As Inpatient Condition: Fair Referrals: Deysi Best [Primary Care Provider] - Forms: ED Satisfaction Letter Time of Disposition: 17:24 Nausea/Vomiting/Diarrhea HPI - General Chief complaint: ED Nausea/Vomiting/Diarrhea Stated complaint: Dehydration,C-diff Time Seen by Provider: 01/23/17 12:33 Source: patient, family Mode of arrival: wheelchair Limitations: no limitations Nursing Notes Reviewed: Yes Vital Signs Reviewed: Yes - History of Present Illness HPI Narrative: 86-year-old with a history of C. difficile 5 in the past comes in today with diarrhea is watery and family states is consistent with what she had previously with the C. difficile. Patient had prolonged treatment which ended in December for the C. difficile. Pt Subjective Complaint: nausea, vomiting, diarrhea, abdominal pain Onset (ago): day(s) Description of emesis: food contents Description of Diarrhea: water Associated Abdominal Pain: Yes If pain, Location of pain: diffuse ([place]) Severity: mild Consistency: intermittent Improves with: nothing Worsens with: nonthing Associated symptoms: Reports: nausea/vomiting - Related Data Home Medications Medication Instructions Recorded Confirmed Aspirin 81 mg PO QPM 01/21/15 05/08/16 Levothyroxine [Synthroid] 75 mcg PO QAM 01/21/15 05/08/16 Furosemide [Lasix] 20 mg PO QAM 10/08/15 05/08/16 Ondansetron ODT [Zofran ODT] 4 mg SL Q8HR PRN 10/08/15 05/08/16 Sertraline [Zoloft] 100 mg PO QPM 10/08/15 05/08/16 Diltiazem HCl [Diltiazem ER] 240 mg PO QAM 01/20/16 05/08/16 Ferrous Sulfate [Iron] 325 mg PO QAM 01/20/16 05/08/16 Ferrous Sulfate [Iron] 650 mg PO QPM 01/20/16 05/08/16 Empagliflozin [Jardiance] 10 mg PO QAM 05/08/16 05/08/16 Previous Rx's Medication Instructions Recorded Vancomycin Oral Soln [Vancocin] 250 mg PO QID 10 Days udc 05/12/16 metroNIDAZOLE [Flagyl] 500 mg PO TID 10 Days tablet 05/12/16 Allergies Allergy/AdvReac Type Severity Reaction Status Date / Time Penicillins Allergy Hives Verified 01/23/17 12:29 Sulfa (Sulfonamide Allergy See Verified 01/23/17 12:29 Antibiotics) Comments Beta-Blockers AdvReac Drowsy Verified 01/23/17 12:29 (Beta-Adrenergic Bloc promethazine [From Phenergan] AdvReac Confusion Verified 01/23/17 12:29 All systems ED: reviewed and negative except as stated. Constitutional: Denies: fever, chills, weakness, weight change Eyes: Denies: eye pain, eye discharge, vision change ENT ED: Denies: ear pain, throat pain, dental pain, hearing loss, epistaxis, congestion, dysphagia Cardiovascular: Denies: chest pain, palpitations, dyspnea on exertion, edema, syncope Respiratory: Denies: cough, dyspnea, wheezes, hemoptysis, stridor Gastrointestinal: Reports: abdominal pain, nausea, vomiting, diarrhea. Denies: constipation, hematemesis, melena, hematochezia Genitourinary: Denies: dysuria, frequency, hematuria, discharge Musculoskeletal: Denies: back pain, neck pain, arthralgia, myalgia Integumentary: Denies: rash, abrasion, lesions Neurological: Denies: headache, weakness, numbness, paresthesias, confusion, abnormal gait, vertigo Psychiatric: Denies: anxiety, depression, suicidal thoughts, homicidal thoughts , auditory hallucinations, visual hallucinations Endocrine: Denies: fatigue Hematological/Lymphatic: Denies: easy bleeding, easy bruising Allergic/Immunologic: Denies: facial swelling, urticaria Past Medical History - Past Medical History Medical history: Reports: arthritis, cardiomyopathy, COPD, dementia, diabetes, GERD, hypertension, osteoporosis, renal disease, thyroid disease, other Surgical history: Reports: appendectomy, (x3), cholecystectomy, hysterectomy, PAN/BSO, other Psychiatric history: Reports: anxiety, depression, other PHARMACEUTICAL PLANT OPERATOR history: Reports: no PHARMACEUTICAL PLANT OPERATOR history - Social History Smoking Status: Never smoker Smokeless Tobacco Status: No Alcohol use: Reports: none Drug use: Reports: none Physical Exam - General Limitations: no limitations General appearance: alert, in no apparent distress - Head Head exam: atraumatic, normocephalic, normal inspection - Eye Eye exam: Present: normal appearance - ENT ENT exam: normal exam, normal oropharynx, mucous membranes moist - Neck Neck exam: Present: normal inspection, full ROM, trachea midline - Chest Chest inspection: Present: normal inspection, symmetric chest wall rise - Respiratory Respiratory exam: Present: normal lung sounds bilaterally - Cardiovascular Cardiovascular exam: Present: regular rate, normal rhythm, normal heart sounds - Abdominal Exam Abdominal exam: Present: soft, tenderness. Absent: guarding, rebound Abdominal tenderness: Present: diffuse - Extremities Exam Extremities exam: Present: normal inspection, full ROM. Absent: tenderness, pedal edema - Expanded Lower Extremity Exam Neurovascular/Tendon exam: Absent: motor deficit, sensory deficit, tendon deficit Gait: observed and normal - Back Exam Back exam: Present: normal inspection, full ROM. Absent: tenderness - Neurological Exam Neurological exam: Present: alert, oriented X3 - Psychiatric Psychiatric exam: Present: normal affect, normal mood - Skin Skin exam: Present: warm, dry, intact, normal color Course - Reevaluation(s) Reevaluation #1: 86-year-old female who comes in with recurrent diarrhea. Family states she's had 5 episodes of C. difficile in the past and this is similar to that. She did bring a sample from home but the lab would not accepted it. The patient states she feels bad she does look dehydrated. Her creatinine is 1.35 the last creatinine was 1.34 however was during an episode of diarrhea. Groundings before that were normal range. Admit hydrate get a stool sample C she has recurrence. Time: 17:22 - Consultations Consultation #1: Discussed with Baldemar Nuñez, admit. Time: 17:22 Vital Signs Temperature 98.7 F 01/23/17 12:25 Pulse Rate 87 01/23/17 12:25 Respiratory Rate 20 01/23/17 12:25 Blood Pressure 104/70 01/23/17 12:25 O2 Sat by Pulse Oximetry 97 01/23/17 12:25 Temperature 98.7 F 01/23/17 12:25 Pulse Rate 80 01/23/17 17:00 Respiratory Rate 20 01/23/17 17:00 Blood Pressure 108/64 01/23/17 17:00 O2 Sat by Pulse Oximetry 99 01/23/17 17:00 Oxygen Delivery Oxygen Delivery Room Air Nausea/Vomiting/Diarrhea - Lab Data Result diagrams: 01/23/17 13:05 01/23/17 13:05 Lab Results 01/23/17 01/23/17 01/23/17 Range/Units 13:05 13:05 13:05 WBC 10.8 (4.3-11.1) K/mcL RBC 4.36 (3.82-4.97) M/mcL Hgb 12.6 (11.5-15.4) g/dL Hct 37.2 (35.3-44.9) % MCV 85.3 (83.0-100.0) fL MCH 28.9 (28.0-33.3) pg MCHC 33.9 (31.6-35.5) g/dL RDW 13.8 (11.5-14.5) % Plt Count 208 (140-400) K/mcL MPV 10.0 (9.4-12.4) fL Immature Gran % 0.5 (0-4) % Seg Neutrophils % 65.0 % Lymphocytes % 20.3 % Monocytes % 12.2 % Eosinophils % 1.4 % Basophils % 0.6 % Neutrophils # 7.1 (1.6-8.9) K/mcL Lymphocytes # 2.2 (0.6-4.6) K/mcL Monocytes # 1.3 (0.0-1.3) K/mcL Eosinophils # 0.2 (0.0-0.6) K/mcL Basophils # 0.1 (0.0-0.2) K/mcL Sodium 136 (136-145) mEq/L Potassium 3.4 L (3.5-4.5) mEq/L Chloride 99 (98-109) mEq/L Carbon Dioxide 25 (19-29) mEq/L BUN 28 H (7-20) mg/dL Creatinine 1.35 H (0.57-1.11) mg/dL Est GFR ( Amer) 45 L (> 60) Est GFR (Non-Af Amer) 37 L (> 60) BUN/Creatinine Ratio 21 (6-26) Glucose 171 H (70-99) mg/dL Calculated Osmolality 292 (280-300) Calcium 9.2 (8.6-10.8) mg/dL Total Bilirubin 0.9 (0.2-1.2) mg/dL Direct Bilirubin 0.4 (0.0-0.5) mg/dL Indirect Bilirubin 0.5 (0.0-1.2) mg/dL AST 14 (5-34) Units/L ALT 10 (0-55) Units/L Alkaline Phosphatase 120 (38-126) Units/L Troponin I 0.01 (0-0.03) ng/mL Serum Total Protein 7.6 (6.0-8.3) g/dL Albumin 3.4 L (3.5-5.0) g/dL Globulin 4.2 H (2.4-3.5) g/dL Albumin/Globulin Ratio 0.8 L (1.1-2.2) Amylase 51 (25-125) Units/L Lipase 34 (8-78) Units/L
[2017-01-23] MEDS: 0.9 % Sodium Chloride 1,000 ML IVC SCH (13:11)
[2017-01-23 13:31] LABS: Basophils # 0.1 K/mcL (0.0-0.2); Basophils % 0.6 %; Eosinophils # 0.2 K/mcL (0.0-0.6); Eosinophils % 1.4 %; Hematocrit 37.2 % (35.3-44.9); Hemoglobin 12.6 g/dL (11.5-15.4); Immature Granulocytes % 0.5 % (0-4); Lymphocytes # 2.2 K/mcL (0.6-4.6); Lymphocytes % 20.3 %; Mean Corpuscular HGB Conc 33.9 g/dL (31.6-35.5); Mean Corpuscular Hemoglobin 28.9 pg (28.0-33.3); Mean Corpuscular Volume 85.3 fL (83.0-100.0); Monocytes # 1.3 K/mcL (0.0-1.3); Monocytes % 12.2 %; Neutrophils # 7.1 K/mcL (1.6-8.9); Platelet Count 208 K/mcL (140-400); Red Blood Count 4.36 M/mcL (3.82-4.97); Red Cell Distribution Width 13.8 % (11.5-14.5)
[2017-01-23 13:51] LABS: Albumin 3.4 g/dL (3.5-5.0); Albumin/Globulin Ratio 0.8 (1.1-2.2); Bilirubin,Direct 0.4 mg/dL (0.0-0.5); Bilirubin,Indirect 0.5 mg/dL (0.0-1.2); Bilirubin,Total 0.9 mg/dL (0.2-1.2); Calcium 9.2 mg/dL (8.6-10.8); Globulin 4.2 g/dL (2.4-3.5); Potassium 3.4 mEq/L (3.5-4.5); Total Protein 7.6 g/dL (6.0-8.3)
[2017-01-23] MEDS ORDERED: Ondansetron 4 MG/2 ML VIAL IVP PRN (19:58)
[2017-01-23] MEDS ORDERED: Naloxone 0.4 MG/ML INJ IVP PRN (19:58)
[2017-01-23] MEDS ORDERED: Haloperidol Lactate 5 MG/ML VIAL IVP PRN (20:01)
--- NOTE | 2017-01-23 20:07 | Internal Med History&Physical ---
Date of Encounter: 01/23/17 Time of Encounter: 20:02 Assessment and Plan (1) Colitis Current visit: Yes Status: Acute per family at bedside she has had multiple episodes of C-Diff colitis and recently completed a prolonged course of antibiotics presumably Vancomycin, there is concern that her current diarrhea is related to C-Diff colitis, diagnostic imaging reported colitis in the rectosigmoid junction, will treat empirically with IV flagyl and consider ID consult should her stools return positive for C-Diff, additional supportive therapy with IVF, pain management as needed, lactobacilli (2) Hypokalemia Current visit: Yes Status: Acute from GI loss arising from diarrhea, will replace and follow BMP (3) CHELE (acute kidney injury) Current visit: Yes Status: Acute baseline creatinine of 0.89, being admitted with creatinine of 1.35 in the setting of extreme dehydration from diarrhea, will aggressively hydrate, avoid nephrotoxins and renally dose all medications (4) Type 2 diabetes mellitus Current visit: Yes Status: Chronic hx of type 2 DM with A1c of 6.8% in 04/2016 but does not seem to be on any home medication per home medication review, we will do basal bolus insulin regimen, check home medications with her daughter who is her primary claims account manager, [employer] [facility], with both hypoglycemia and hyperglycemia coverage, will update A1c Qualifiers: Diabetes mellitus complication status: with neurologic complications Diabetes mellitus complication detail: with polyneuropathy Diabetes mellitus longterm insulin use: without longterm use Qualified Code(s): E11.42 - Type 2 diabetes mellitus with diabetic polyneuropathy (5) Dementia Current visit: Yes Status: Chronic currently not on medications, family concerned about delirium so is requesting early discharge where possible so she can be in her familiar surroundings, will order delirium protocol Qualifiers: Dementia type: Alzheimer's disease Alzheimer's disease onset: late-onset Dementia behavioral disturbance: without behavioral disturbance Qualified Code (s): G30.1 - Alzheimer's disease with late onset; F02.80 - Dementia in other diseases classified elsewhere without behavioral disturbance; F02.80 - Dementia in other diseases classified elsewhere without behavioral disturbance; F02.80 - Dementia in other diseases classified elsewhere without behavioral disturbance (6) COPD (chronic obstructive pulmonary disease) Current visit: Yes Status: Chronic stable, will do PRN nebs Qualifiers: COPD type: chronic bronchitis Chronic bronchitis type: simple Qualified Code(s): J41.0 - Simple chronic bronchitis (7) Hypothyroidism Current visit: Yes Status: Chronic continue synthroid at home dose Qualifiers: Hypothyroidism type: acquired Qualified Code(s): E03.9 - Hypothyroidism, unspecified Internal Medicine - H&P: HPI Chief complaint: nausea and diarrhea Admitted From: Emergency Dept Plans for Post Hospital Care: Home History of present illness: Ms. Pagan is a 86 year old female with prior history of clostridium difficile colitis(5x per reports) who was brought in today for nausea and diarrhea. Per family at bedside, patient was well after she completed treatment for C-Diff on 12/29 but over this weekend she has had multiple bouts of watery stools associated with nausea with dry heaves. She has been unable to eat anything and has had associated generalized weakness and fatigue. Her appetite is poor. There is no report of fever, chills, but she has had reduced urine output. Family sent patient to [facility] yesterday due to her persistent symptoms but they were discharged home without further interventions. She came here today because she has not felt any better, she had about 5 stools in one hour this morning. History was obtained from daughter at bedside since patient has dementia and is unable to add to the history. She lives with her daughter and son in law. In the ER of [place] she was found to have colitis on imaging. Stool studies are pending. Past Med Surg Social Fam HX - Past Medical History Medical history: arthritis, cardiomyopathy, COPD, dementia, diabetes, GERD, hypertension, osteoporosis, renal disease, thyroid disease, other Psychiatric history: anxiety, depression, other - Past Surgical History Surgical History: appendectomy, (x3), cholecystectomy, hysterectomy, PAN/BSO, other - Social History Smoking Status: Never smoker Smokeless Tobacco Status: No Alcohol use: none Drug use: none - Family History Brother Living Status: Hx Family Cancer: Yes (esophagus) Mother Hx Family Respiratory Disorders: Yes (PE) Internal Medicine - H&P: Meds Aspirin 81 mg PO QPM 01/21/15 [History] Furosemide [Lasix] 20 mg PO QAM 10/08/15 [History] Sertraline [Zoloft] 100 mg PO QPM 10/08/15 [History] Diltiazem HCl [Diltiazem ER] 240 mg PO QAM 01/20/16 [History] Ferrous Sulfate [Iron] 325 mg PO QAM 01/20/16 [History] Ferrous Sulfate [Iron] 650 mg PO QPM 01/20/16 [History] Levothyroxine [Synthroid] 50 mcg PO 0630 01/23/17 [History] Ondansetron HCl [Zofran] 4 - 8 mg PO Q6H PRN 01/23/17 [History] 3 Allergy/AdvReac Type Severity Reaction Status Date / Time Penicillins Allergy Hives Verified 01/23/17 12:29 Sulfa (Sulfonamide Allergy See Verified 01/23/17 12:29 Antibiotics) Comments Beta-Blockers AdvReac Drowsy Verified 01/23/17 12:29 (Beta-Adrenergic Bloc promethazine [From Phenergan] AdvReac Confusion Verified 01/23/17 12:29 All Systems PM: A 10-system review of systems was performed and is negative for pertinent findings except as documented above in the HPI. - Constitutional Vitals: Temp Pulse Resp BP Pulse Ox 98.4 F 78 15 119/68 98 01/23/17 19:56 01/23/17 19:56 01/23/17 19:56 01/23/17 19:56 01/23/17 19:56 GENERAL: Elderly female, lying in bed, awake and alert, not in obvious pain or distress HEENT: NC/AT, EOMI, PERRLA, anicteric sclera, normal conjunctiva, supple, clear nares, dry mucous membranes, RESP: Lungs are clear to auscultation bilaterally, with good AE, no crackles or wheeze CARDIO: Normal heart sounds with RRR, no murmurs, no JVD, no ankle edema GI: Soft, full, no tenderness, no organomegaly felt, normal bowel sounds heard MUSCULOSKELETAL: Grossly normal movements bilaterally, no deformities noted, NEUROLOGIC: CN 2-12 intact grossly. No gross motor/sensory deficit appreciated, PSYCHIATRY: AAO x 1-self, not oriented to time or place, only recalls her first name and not her last SKIN: no skin rash or ulcers noted Internal Med - H&P Results - Labs CBC & Chem 7: 01/23/17 13:05 01/23/17 13:05
[2017-01-23] MEDS ORDERED: Potassium Chloride Elixir 20 MEQ/15 ML UDC PO ONE (20:15)
[2017-01-23] MEDS: Ringers Solution, Lactated 1,000 ML IVC SCH (23:31)
[2017-01-24 01:07] LABS: Bilirubin,Urine Small (Negative); Blood,Urine Moderate (Negative); Clarity,Urine Cloudy (Clear); Color,Urine Yellow (Yellow); Glucose,Urine (UA) Normal (Normal); Ketones,Urine 15 mg/dL (Negative); Leukocyte Esterase,Urine Small (Negative); Nitrite,Urine Negative (Negative); Protein,Urine 30 mg/dL (Neg-Trace); Specific Gravity,Urine 1.023 (1.010-1.025); Urobilinogen,Urine Normal (Normal)
[2017-01-24 01:10] LABS: Hyaline Casts,Urine None Seen per lpf (None-Few); Squamous Epithelial Cell,Urine Many per lpf (None-Few)
[2017-01-24 01:25] LABS: Bacteria,Urine Few per hpf (None-Few); Calcium Oxalate Crystals,Urine Present
[2017-01-24] MEDS ORDERED: Albuterol 2.5 MG/3 ML NEBULIZER IH PRN (02:05)
[2017-01-24 02:24] LABS: Adenovirus F 40/41 PCR Not detected (Not detect); Astrovirus PCR Not detected (Not detect); C.difficile Toxin A/B by PCR See reflex test (Not detect); Campylobacter by PCR Not detected (Not detect); Cryptosporidium by PCR Not detected (Not detect); Cyclospora cayetanensis PCR Not detected (Not detect); E. coli O157 by PCR Not detected (Not detect); Entamoeba histolytica PCR Not detected (Not detect); Enteroaggregative E.coli(EAEC) Not detected (Not detect); Enteropathogenic E.coli(EPEC) Not detected (Not detect); Enterotoxigenic E.coli (ETEC) Not detected (Not detect); Giardia lamblia PCR Not detected (Not detect); Norovirus GI/GII PCR Not detected (Not detect); Plesiomonas shigelloides PCR Not detected (Not detect); Rotavirus A PCR Not detected (Not detect); Salmonella PCR Not detected (Not detect); Sapovirus PCR Not detected (Not detect); Shig/EnteroinvasiveE coli EIEC Not detected (Not detect); Shigalike tox-prod E coli STEC Not detected (Not detect); Vibrio PCR Not detected (Not detect); Vibrio cholerae PCR Not detected (Not detect); Yersinia enterocolitica PCR Not detected (Not detect)
[2017-01-24] MEDS ORDERED: D5% in Water 1,000 ML IVC PRN (03:08)
[2017-01-24] MEDS ORDERED: Dextrose Gel 15 GM PO PRN ×2 (03:08)
[2017-01-24] MEDS ORDERED: *HR* Dextrose 50 % in Water (Syg) 50 ML SYRINGE IVP PRN (03:08)
[2017-01-24] MEDS: *HR* Heparin 5,000 UNIT/ML VIAL SQ SCH ×2 (05:15→17:12)
[2017-01-24 05:54] LABS: Basophils # 0.1 K/mcL (0.0-0.2); Basophils % 0.8 %; Eosinophils # 0.3 K/mcL (0.0-0.6); Eosinophils % 3.7 %; Hematocrit 29.8 % (35.3-44.9); Immature Granulocytes % 0.3 % (0-4); Lymphocytes # 2.1 K/mcL (0.6-4.6); Lymphocytes % 26.9 %; Mean Corpuscular HGB Conc 33.6 g/dL (31.6-35.5); Mean Corpuscular Hemoglobin 28.2 pg (28.0-33.3); Mean Corpuscular Volume 84.2 fL (83.0-100.0); Mean Platelet Volume 9.9 fL (9.4-12.4); Monocytes # 1.1 K/mcL (0.0-1.3); Monocytes % 14.3 %; Neutrophils # 4.2 K/mcL (1.6-8.9); Platelet Count 158 K/mcL (140-400); Red Blood Count 3.54 M/mcL (3.82-4.97); Red Cell Distribution Width 13.8 % (11.5-14.5)
[2017-01-24 06:03] LABS: BUN/Creatinine Ratio 21 (6-26); Blood Urea Nitrogen 21 mg/dL (7-20); Calcium 8.6 mg/dL (8.6-10.8); Carbon Dioxide 28 mEq/L (19-29); Chloride 105 mEq/L (98-109); Glucose 78 mg/dL (70-99); Magnesium 1.5 mg/dL (1.6-2.6); Osmolality,Calculated 290 (280-300); Phosphorous 2.1 mg/dL (2.3-4.7); Potassium 3.4 mEq/L (3.5-4.5); Sodium 139 mEq/L (136-145); eGFR For African Americans > 60 (> 60); eGFR For Non-African Americans 53 (> 60)
[2017-01-24] MEDS: Ringers Solution, Lactated 1,000 ML IVC SCH (07:52)
[2017-01-24] MEDS: 0.9 % Sodium Chloride 1,000 ML IVC SCH (07:52)
[2017-01-24] MEDS: MetroNIDAZOLE 500 MG/100 ML 500 MG/100 ML BAG IVPB SCH ×2 (07:53→15:52)
[2017-01-24] MEDS: Vitamin B Complex/Vit C/Vit E 1 EACH TABLET PO SCH (07:55)
[2017-01-24] MEDS: Diltiazem CD (24hr) 240 MG CAPSULE PO SCH (07:55)
[2017-01-24] MEDS: Insulin LISPRO 300 UNITS/3 ML VIAL SQ SCH ×3 (07:55→17:11)
[2017-01-24] MEDS: Folic Acid 1 MG TABLET PO SCH (07:55)
[2017-01-24] MEDS: Thiamine (B-1) 100 MG TABLET PO SCH (07:56)
[2017-01-24] MEDS ORDERED: 0.9 % Sodium Chloride 1,000 ML IVC SCH ×2 (08:09→08:30)
[2017-01-24] MEDS ORDERED: Potassium Effervescent 25 MEQ TABLET.EFF PO ONE (08:57)
[2017-01-24] MEDS: Vancomycin Oral Soln 250 MG/5 ML UDC PO SCH ×4 (09:42→21:13)
--- NOTE | 2017-01-24 10:02 | Internal Med Progress Note ---
<Jose LsamyYolette schafer - Last Filed: 01/24/17 14:54> Date of Encounter: 01/24/17 Time of Encounter: 09:57 - Assessment and plan (1) Colitis Current Visit: Yes Status: Acute Assessment and plan: Per reports, this is patient's fifth episode of Clostridium difficile colitis. Per family at bedside, patient recently completed of a prolonged course of antibiotics presumably vancomycin. Abdominal CT scan shows findings suggestive of colitis which had improved from previous examination. -Follow-up stool panel -IV Flagyl and oral vancomycin day 2. -Consult infectious disease to see if they have recommendations to escalate antibiotics to include fidaxomicin. -Patient's family is not interested in a fecal transplant at this time. (2) CHELE (acute kidney injury) Current Visit: Yes Status: Acute Assessment and plan: Creatinine trending down from 1.35 on admission 0.99 today. Due to dehydration secondary to GI losses. -Continue IV fluids. Avoid nephrotoxic agents. -Renally dose. (3) Hypokalemia Current Visit: No Status: Acute Assessment and plan: Follow chemistry. Replete as necessary. (4) Diabetes mellitus Current Visit: No Status: Chronic Assessment and plan: Before meals at bedtime protocol. Qualifiers: Diabetes mellitus type: type 2 Diabetes mellitus complication status: without complication Diabetes mellitus department administrator insulin use: without half-way use Qualified Code(s): E11.9 - Type 2 diabetes mellitus without complications (5) Hypothyroidism Current Visit: Yes Status: Chronic Assessment and plan: Continue Synthroid. Qualifiers: Hypothyroidism type: acquired Qualified Code(s): E03.9 - Hypothyroidism, unspecified (6) Dementia Current Visit: No Status: Acute Assessment and plan: Delirium protocol ordered Qualifiers: Dementia type: unspecified type Dementia behavioral disturbance: without behavioral disturbance Qualified Code(s): F03.90 - Unspecified dementia without behavioral disturbance - Subjective Interval history: Ms. Coleman is an 86-year-old female with past medical history of 5 episodes of C. difficile colitis, COPD, cardiomyopathy, dementia, diabetes, GERD, hypertension , renal disease, osteoporosis, and thyroid disease. She presents to the hospital with diarrhea. She is admitted for inpatient workup of colitis. This morning, patient states she is resting comfortably. She denies any diarrhea, however, her daughter is at bedside and said she has had a bowel movement this morning that was loose, not watery, yet not fully formed. - Constitutional Vitals: Temp Pulse Resp BP Pulse Ox 98.6 F 75 15 125/68 97 01/24/17 06:30 01/24/17 06:30 01/24/17 06:30 01/24/17 06:30 01/24/17 07:02 General appearance: Present: A&O X 1, pleasant - Respiratory Respiratory exam: Present: CTAB. Absent: accessory muscle use, rales, rhonchi, wheezes - Cardiovascular Cardiovascular exam: Present: RRR, +S1, +S2. Absent: diastolic murmur, gallop, rubs, systolic murmur - GI/Abdominal GI/Abdominal exam: Present: normal bowel sounds, soft, no peritoneal signs. Absent: distended, tenderness - Extremities Exam Extremities exam: Present: pedal edema (1 plus), warm, radial pulses palpable and symmetrical. Absent: calf tenderness, cyanotic Internal Medicine: Result - Labs CBC & Chem 7: 01/24/17 05:37 01/24/17 05:37 Labs: Short CBC 01/24/17 Range/Units 05:37 WBC 7.8 (4.3-11.1) K/mcL Hgb 10.0 L D (11.5-15.4) g/dL Hct 29.8 L (35.3-44.9) % Plt Count 158 (140-400) K/mcL Neutrophils # 4.2 (1.6-8.9) K/mcL BMP 01/24/17 05:37 Sodium 139 Potassium 3.4 L Chloride 105 Carbon Dioxide 28 BUN 21 H Creatinine 0.99 Glucose 78 Calcium 8.6 Urine 01/24/17 Range/Units 00:45 Urine Color Yellow (Yellow) Urine Clarity Cloudy A (Clear) Urine pH 6.0 (5.0-8.0) pH Units Ur Specific [place] 1.023 (1.010-1.025) Urine Protein 30 H (Neg-Trace) mg/dL Urine Glucose (UA) Normal (Normal) mg/dL Consult Discharge Plan - Plan Referrals: Deysi Best [Primary Care Provider] - 01/31/17 11:40 am (This appointment will be with Freda Moulton CNP because Dr. Best will be out of the office. Thank you!) <Gisele Terry - Last Filed: 01/24/17 15:36> Date of Encounter: 01/24/17 - Constitutional Vitals: Temp Pulse Resp BP Pulse Ox 98.3 F 73 15 96/55 99 01/24/17 11:12 01/24/17 11:12 01/24/17 11:12 01/24/17 11:12 01/24/17 11:12 Internal Medicine: Result - Labs CBC & Chem 7: 01/24/17 05:37 01/24/17 05:37 - Attending Attestation I saw and examined the patient independently. I have discussed with the resident Dr. Orourke regarding the management plan. Agree with the documentation. Patient admitted for C. difficile colitis. Right now on by mouth vancomycin and IV Levaquin. States diarrhea has improved. 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 Will consult ID for further management. Patient's CHELE has improved after hydration. CT abdomen has been done, no signs of megacolon.
[2017-01-24] MEDS ORDERED: Magnesium Sulfate 2 GM in D5% in Water 100 ML IVPB ONE (15:12)
[2017-01-24 16:17] LABS: Basophils # 0.1 K/mcL (0.0-0.2); Basophils % 0.8 %; Eosinophils # 0.3 K/mcL (0.0-0.6); Hematocrit 31.4 % (35.3-44.9); Hemoglobin 10.5 g/dL (11.5-15.4); Immature Granulocytes % 0.4 % (0-4); Lymphocytes # 2.1 K/mcL (0.6-4.6); Lymphocytes % 26.9 %; Mean Corpuscular HGB Conc 33.4 g/dL (31.6-35.5); Mean Corpuscular Volume 86.7 fL (83.0-100.0); Monocytes # 1.1 K/mcL (0.0-1.3); Monocytes % 14.7 %; Neutrophils # 4.1 K/mcL (1.6-8.9); Platelet Count 181 K/mcL (140-400); Red Blood Count 3.62 M/mcL (3.82-4.97); Red Cell Distribution Width 14.1 % (11.5-14.5); Segmented Neutrophils % 53.2 %
[2017-01-24 16:55] LABS: Hemoglobin A1C 6.2 %
[2017-01-24] MEDS: Aspirin 81 MG TAB.CHEW PO SCH (17:12)
[2017-01-24] MEDS ORDERED: Insulin LISPRO 300 UNITS/3 ML VIAL SQ SCH (21:00)
[2017-01-25] MEDS: MetroNIDAZOLE 500 MG/100 ML 500 MG/100 ML BAG IVPB SCH ×3 (00:20→16:00)
[2017-01-25] MEDS: *HR* Heparin 5,000 UNIT/ML VIAL SQ SCH ×2 (05:35→16:12)
[2017-01-25 07:07] LABS: Basophils # 0.1 K/mcL (0.0-0.2); Basophils % 0.9 %; Eosinophils # 0.3 K/mcL (0.0-0.6); Eosinophils % 4.4 %; Hemoglobin 9.4 g/dL (11.5-15.4); Immature Granulocytes % 0.5 % (0-4); Lymphocytes # 2.6 K/mcL (0.6-4.6); Lymphocytes % 39.4 %; Mean Corpuscular HGB Conc 32.4 g/dL (31.6-35.5); Mean Corpuscular Hemoglobin 28.7 pg (28.0-33.3); Mean Corpuscular Volume 88.4 fL (83.0-100.0); Mean Platelet Volume 10.2 fL (9.4-12.4); Monocytes # 1.1 K/mcL (0.0-1.3); Neutrophils # 2.6 K/mcL (1.6-8.9); Platelet Count 159 K/mcL (140-400); Red Blood Count 3.28 M/mcL (3.82-4.97); Segmented Neutrophils % 38.8 %
[2017-01-25 07:09] VITALS: BP 114/61
[2017-01-25] MEDS: Vitamin B Complex/Vit C/Vit E 1 EACH TABLET PO SCH (07:19)
[2017-01-25] MEDS: Folic Acid 1 MG TABLET PO SCH (07:19)
[2017-01-25] MEDS: Diltiazem CD (24hr) 240 MG CAPSULE PO SCH (07:19)
[2017-01-25] MEDS: Thiamine (B-1) 100 MG TABLET PO SCH (07:20)
[2017-01-25] MEDS: Vancomycin Oral Soln 250 MG/5 ML UDC PO SCH ×3 (07:20→16:12)
[2017-01-25] MEDS: Insulin LISPRO 300 UNITS/3 ML VIAL SQ SCH ×3 (07:30→16:26)
[2017-01-25 07:49] LABS: BUN/Creatinine Ratio 18 (6-26); Blood Urea Nitrogen 17 mg/dL (7-20); Calcium 7.9 mg/dL (8.6-10.8); Carbon Dioxide 24 mEq/L (19-29); Chloride 107 mEq/L (98-109); Glucose 85 mg/dL (70-99); Magnesium 1.8 mg/dL (1.6-2.6); Osmolality,Calculated 289 (280-300); Potassium 3.2 mEq/L (3.5-4.5); Sodium 139 mEq/L (136-145); eGFR For African Americans > 60 (> 60); eGFR For Non-African Americans 57 (> 60)
[2017-01-25] MEDS ORDERED: Magnesium Sulfate 2 GM in D5% in Water 100 ML IVPB ONE (08:52)
--- NOTE | 2017-01-25 14:09 | Discharge Summary ---
<Yolette Orourke H - Last Filed: 01/25/17 14:13> Date of Encounter: 01/25/17 Time of Encounter: 10:00 - Discharge Diagnosis (1) Colitis Priority: Primary Status: Acute (2) CHELE (acute kidney injury) Priority: Secondary Status: Acute (3) Hypokalemia Priority: Secondary Status: Acute (4) Diabetes mellitus Priority: Secondary Status: Chronic Qualifiers: Diabetes mellitus type: type 2 Diabetes mellitus complication status: without complication Diabetes mellitus termination clerk insulin use: without termination clerk use Qualified Code(s): E11.9 - Type 2 diabetes mellitus without complications (5) Hypothyroidism Priority: Secondary Status: Chronic Qualifiers: Hypothyroidism type: acquired Qualified Code(s): E03.9 - Hypothyroidism, unspecified (6) Dementia Priority: Secondary Status: Acute Qualifiers: Dementia type: unspecified type Dementia behavioral disturbance: without behavioral disturbance Qualified Code(s): F03.90 - Unspecified dementia without behavioral disturbance - Discharge Medications Home Medications: Aspirin 81 mg PO QPM 01/21/15 [History] Furosemide [Lasix] 20 mg PO QAM 10/08/15 [History] Sertraline [Zoloft] 100 mg PO QPM 10/08/15 [History] Diltiazem HCl [Diltiazem ER] 240 mg PO QAM 01/20/16 [History] Ferrous Sulfate [Iron] 325 mg PO QAM 01/20/16 [History] Ferrous Sulfate [Iron] 650 mg PO QPM 01/20/16 [History] Levothyroxine [Synthroid] 50 mcg PO 0630 01/23/17 [History] Ondansetron HCl [Zofran] 4 - 8 mg PO Q6H PRN 01/23/17 [History] Allergies/Adverse Reactions: 3 Allergy/AdvReac Type Severity Reaction Status Date / Time Penicillins Allergy Hives Verified 01/23/17 12:29 Sulfa (Sulfonamide Allergy See Verified 01/23/17 12:29 Antibiotics) Comments Beta-Blockers AdvReac Drowsy Verified 01/23/17 12:29 (Beta-Adrenergic Bloc promethazine [From Phenergan] AdvReac Confusion Verified 01/23/17 12:29 Date of admission: 01/24/17 12:55 Primary care physician: Deysi Best Consults: 01/24/17 15:18 Consult to Infectious Diseases [CONS] Routine Consulting Provider: Infectious Disease Milady Reason for Consult: recurrent C.Diff, Lauren Kyler follows this patient outpatient. Call Completed: Yes - Patient Status Disposition: Transfer Critical Access Hosp Condition: Fair Overall status at discharge: patient is not back to baseline - Discharge Instructions Follow Up With: Deysi Best [Primary Care Provider] - 01/31/17 11:40 am (This appointment will be with Freda Moulton CNP because Dr. Best will be out of the office. Thank you!) Hospital course: Ms. Pagan is a 86 year old female with past medical history of dementia, COPD, cardiomyopathy, diabetes, GERD, hypertension, osteoporosis, renal disease, and thyroid disease. Patient presented to the hospital with her fifth episode of Clostridium difficile colitis per stool panel analysis. Per family, patient just received treatment for C. difficile on December 29. However prior to admission, she had had multiple bouts of watery diarrhea. Patient was admitted for IV hydration, electrolyte replacement, and colitis in the rectosigmoid colon confirmed by CT scan of the abdomen and pelvis. Patient was started on IV Flagyl and oral vancomycin. Infectious disease was consulted who knew the patient well. According to them, he had been treated with 2 vancomycin tapers in the past several months. They recommended transfer to [facility] for fecal transplantation. Patient's family was unsure of the invasiveness of this procedure. After discussions with them about the different modalities used in fecal transplantation, they consented that a transfer would be in the best interest. Dr. Jose Lemus was the accepting hospital at [facility]. All questions were answered, and all concerns were addressed prior to transfer. Patient was stable for transfer. - Time Spent with Patient Total time spent providing and/or coordinating discharge services: Greater than 30 minutes (40 minutes) - Constitutional Vitals: Temp Pulse Resp BP Pulse Ox 97.9 F 80 15 114/61 96 01/25/17 06:50 01/25/17 06:50 01/25/17 06:50 01/25/17 06:50 01/25/17 06:50 General appearance: Present: A&O X 1, pleasant - Respiratory Respiratory exam: Present: CTAB. Absent: accessory muscle use, rales, rhonchi, wheezes - Cardiovascular Cardiovascular exam: Present: RRR, +S1, +S2. Absent: diastolic murmur, gallop, rubs, systolic murmur - GI/Abdominal GI/Abdominal exam: Present: normal bowel sounds, soft, tenderness (Mild tenderness across the lower quadrants bilaterally.), no peritoneal signs. Absent: distended - Extremities Exam Extremities exam: Present: warm, radial pulses palpable and symmetrical. Absent : calf tenderness, cyanotic, pedal edema <Gisele Terry - Last Filed: 01/25/17 14:55> Date of Encounter: 01/25/17 Date of admission: 01/24/17 12:55 Primary care physician: Deysi Best Consults: 01/24/17 15:18 Consult to Infectious Diseases [CONS] Routine Consulting Provider: Infectious Disease Milady Reason for Consult: recurrent C.Diff, Lauren Chávez follows this patient outpatient. Call Completed: Yes Hospital course: Ms. Pagan is a 86 year old female - Time Spent with Patient Total time spent providing and/or coordinating discharge services: - Constitutional Vitals: Temp Pulse Resp BP Pulse Ox 97.9 F 80 15 114/61 96 01/25/17 06:50 01/25/17 06:50 01/25/17 06:50 01/25/17 06:50 01/25/17 06:50 - Attending Attestation I have seen and examined the patient independently. I have discussed with the resident Dr Orourke regarding the discharge planning. Agree with the documentation. Patient admitted for the fifth recurrent C. difficile colitis, not respond well to medication. Discussed with patient and family, patient will benefit from transferring to [facility] for possibly fecal transplant. Patient was accepted by [facility], we will discharge and transfer her to [facility] today. Patient still has diarrhea, vitals is stable to transfer.
[2017-01-25] MEDS: Aspirin 81 MG TAB.CHEW PO SCH (16:12)
== END 2017-01-25 18:40 | disposition critical access hospital (66) | DRG 372 ==
LOC: 3ANU 12:19 → EMEROO 12:19 → 3ANU 18:49 → SUATTDRO 01-24 12:55
PROVIDERS: ADMIT Nurse Practitioner Family; ATTEND Internal Medicine